=== PATIENT | female | born 1950 | race Caucasian/White ===

== ENCOUNTER 2021-09-15 15:57 | Inpatient (IN) ==
--- NOTE | 2021-09-15 16:37 | Emergency Department Note ---
HPI General Chief complaint: Back Pain/Injury Stated complaint: Low back pain Time Seen by Provider: 09/15/21 16:06 Source: patient and family Mode of arrival: wheelchair Limitations: no limitations History of Present Illness HPI Narrative: Narrative: 71-year-old female with a history of diabetes, diabetic neuropathy, obstructive sleep apnea, CKD, diabetic retinopathy, hyperlipidemia, morbid obesity, anemia, GERD hypertension hypothyroidism presents the ER initially to be evaluated for back pain which is since resolved but she was found to be at 70% on room air and when asked if she was short of breath she said yeah when I think about it I am short of breath now and it came out of the blue. She states her back pain and shortness of breath were sudden onset this afternoon there was no precipitating factor. She also states she has had some chills today. She has had no fever, nausea, vomiting, chest pain or chest pressure. She denies any abdominal pain, flank pain, dysuria, urgency or frequency. She has had all her COVID vaccinations. She denies any other complaints at this time. Related Data Home Medications Medication Instructions Recorded Confirmed aspirin 81 mg tablet,delayed 81 mg PO QDAY 12/20/18 08/23/21 release (Adult Aspirin Regimen) cholecalciferol (vitamin D3) PO 12/20/18 08/23/21 coenzyme [id number] 100 mg-100 cap PO QDAY cap 12/20/18 08/23/21 unit capsule anastrozole 1 mg tablet 1 mg PO .3 days per week tab 05/24/21 08/23/21 Previous Rx's Medication Instructions Recorded fluticasone propionate 50 1 spray INTRANASAL BID PRN #18.2 ml 08/26/19 mcg/actuation nasal spray,suspension (Flonase Allergy Relief) acebutolol 400 mg capsule 400 mg PO QDAY #90 cap 11/01/20 paroxetine HCl 20 mg tablet See Rx Instructions .ROUTE 02/22/21 .COMPLEX #100 tab zolpidem 10 mg tablet See Rx Instructions PO QHS #30 tab 05/23/21 levothyroxine 175 mcg tablet 175 mcg PO QDAY #90 tab 05/26/21 (Synthroid) buspirone 30 mg tablet See Rx Instructions .ROUTE 07/04/21 .COMPLEX #135 tab furosemide 20 mg tablet See Rx Instructions .ROUTE 07/04/21 .COMPLEX #90 tab omeprazole 20 mg capsule,delayed See Rx Instructions .ROUTE 07/04/21 release .COMPLEX #90 capsule atorvastatin 80 mg tablet 80 mg PO QHS #100 tab 08/15/21 losartan 100 mg tablet 100 mg PO QDAY #100 tab 08/15/21 pioglitazone 15 mg tablet See Rx Instructions .ROUTE 08/15/21 .COMPLEX #50 tab cephalexin 500 mg capsule 500 mg PO TID 10 Days #30 cap 08/23/21 Allergies Allergy/AdvReac Type Severity Reaction Status Date / Time amlodipine [From [facility]] Allergy Severe unknown Verified 09/15/21 15:57 atenolol Allergy Severe unknown Verified 09/15/21 15:57 captopril Allergy Severe unknown Verified 09/15/21 15:57 YOKO Inhibitors Allergy Unknown unknown Verified 09/15/21 15:57 Review of Systems ROS ROS Narrative: Narrative: All systems ED: reviewed and negative except as stated. [facility] Narrative Patient History Narrative: Narrative: Medical/Surgical/Family History All Active Problems (Updated 09/15/21 @ 18:27 by Kd Blanchard PA-C) Pneumonia (Acute) Dyspnea (Acute) Diarrhea (Acute) Right knee pain (Acute) Right shoulder pain (Acute) Diabetic peripheral neuropathy associated with type 2 diabetes mellitus (Acute) Skin lesion (Acute) Osteoporosis (Acute) Mixed hyperlipidemia (Acute) Type 2 diabetes with stage 3 chronic kidney disease GFR 30-59 (Acute) Diabetic retinopathy (Chronic) Stress (Chronic) Decreased libido (Chronic) Atrophic vaginitis (Chronic) Anemia (Chronic) Insomnia (Chronic) Hyperlipidemia (Chronic) Morbid obesity (Chronic) Sleep apnea (Chronic) Right knee pain (Chronic) Skin tag (Chronic) Fatigue (Chronic) Anxiety and depression (Chronic) Impingement syndrome, shoulder, left (Chronic) Left shoulder pain (Chronic) Sinus bradycardia (Chronic) Hearing loss (Chronic) Hemoglobinopathy (Chronic) Chronic ulcer of unspecified site (Chronic) Anemia, iron deficiency (Chronic) Encounter for long-term (current) use of medications (Chronic) Pain in left knee (Chronic) Invasive ductal carcinoma of left breast (Chronic) Foot callus (Chronic) Allergic rhinitis (Chronic) Skin lesion (Chronic) Blood in stool (Chronic) Benign neoplasm of cecum (Chronic) Benign neoplasm of transverse colon (Chronic) Benign neoplasm of descending colon (Chronic) Diverticulosis of colon without hemorrhage (Chronic) GERD (gastroesophageal reflux disease) (Chronic) Obesity (Chronic) Osteopenia (Chronic) Hypertension (Chronic) Vitamin D deficiency (Chronic) Hyperglycemia due to type 2 diabetes mellitus (Chronic) Type II diabetes mellitus with stage 2 chronic kidney disease (Chronic) Kidney disease, chronic, stage II (GFR 60-89 ml/min) (Chronic) Hyperlipidemia, mixed (Chronic) Hypothyroidism (Chronic) Skin mole (Chronic) Medical History (Updated 09/15/21 @ 18:27 by Kd Blanchard PA-C) Allergic rhinitis Anemia Anemia, iron deficiency Anxiety and depression Atrophic vaginitis Benign neoplasm of cecum Benign neoplasm of descending colon Benign neoplasm of transverse colon Blood in stool Chronic ulcer of unspecified site Decreased libido Diabetic retinopathy Diverticulosis of colon without hemorrhage Encounter for long-term (current) use of medications Fatigue Foot callus GERD (gastroesophageal reflux disease) Hearing loss Hemoglobinopathy Hyperglycemia due to type 2 diabetes mellitus Hyperlipidemia Hyperlipidemia, mixed Hypertension Hypothyroidism Impingement syndrome, shoulder, left Insomnia Invasive ductal carcinoma of left breast Kidney disease, chronic, stage II (GFR 60-89 ml/min) Left shoulder pain Morbid obesity Obesity Osteopenia Pain in left knee Right knee pain Sinus bradycardia Skin lesion Skin mole Skin tag Sleep apnea Stress Type II diabetes mellitus with stage 2 chronic kidney disease Vitamin D deficiency Surgical History History of lumpectomy of left breast (~12/2005) History of shoulder surgery (~09/2014) left shoulder complete replacement History of surgery (~11/2006) lap band, done in [place] Family History Other No pertinent family history Social History Smoking Status: Former smoker Alcohol Intake Frequency: does not drink Substance Use: does not use Exam Narrative Narrative: Narrative: Gen: Patient has 6 L via nasal cannula and is pausing to speak between breaths Eyes: PERRL, no conjunctival injection , and symmetrical lids. Sclerae non icteric HENMT: Normocephalic Atraumatic head, external nose and ears. Moist MM. Neck: Symmetric, trachea midline, CVS: +S1/S2, No murmurs or gallops. Radial pulses 2+ and equal bilat. nonpitting edema of the lower extremity RESP: Labored respiratory effort . Clear to auscultation bilaterally (CTAB). No noted wheezes rales or ronchi. GI: Nontender/Nondistended (NTND), No focal tenderness MSK: Extremities w/o deformity or ttp. No cyanosis or clubbing. Skin: Warm, Dry . No rashes or lesions . Cap refill less than 2. Neuro: No focal neurological deficit Psych: Awake, Alert, & Oriented (AAO) x3. Appropriate mood and affect . General Limitations: no limitations Course Vital Signs Vital signs: Vital Signs Temperature 97.5 F 09/15/21 15:57 Pulse Rate 82 09/15/21 15:57 Respiratory Rate 24 H 09/15/21 15:57 Blood Pressure 130/79 09/15/21 15:57 Pulse Oximetry (%) 70 L 09/15/21 15:57 Temperature 97.5 F 09/15/21 15:57 Pulse Rate 82 09/15/21 15:57 Respiratory Rate 24 H 09/15/21 15:57 Blood Pressure 130/79 09/15/21 15:57 Pulse Oximetry (%) 70 L 09/15/21 15:57 [facility] MDM Narrative Medical decision making narrative: Narrative: Patient had acute onset low back pain that is since resolved. She is also had chills today and has profound hypoxia 78% on room air. She has a history of obstructive sleep apnea which she use supplemental oxygen for at home for a short period of time but has not used this for several years. She states she is not normally short of breath at baseline and does not use supplemental oxygen at home. She denies fever but is positive for chills. She denies chest pain, chest pressure or previous cardiovascular history. I am concerned for possible pulmonary embolism or dissection. She states it was low back pain but this is resolved but she has profound hypoxia. Pending kidney function a CTA will be ordered. She also be evaluated with CBC, Chem-8, hepatic panel, troponin, EKG, chest x-ray and flu and COVID swabs. CBC: Hemoconcentration Chem-8: Unremarkable Hepatic panel: Unremarkable BNP: Slightly elevated but nonconcerning Troponin: Normal EKG: Sinus rhythm rate 81 bpm, likely left anterior fascicular block, borderline T wave abnormality, no evidence of acute ischemia at this time. Chest x-ray: Significant pneumonia of the right lung IMPRESSION: Large consolidated infiltrate right mid and lower lung with small right pleural effusion. Suspect pneumonia Interpreted and Authenticated by: Pito Bocanegra 09/15/21 Flu: Negative COVID: Negative Dr. Lentz will be consulted for pneumonia and hypoxia. She requested the patient be started on Zosyn and he will be down to see her for admission. Discharge Plan Patient/Caregiver Discharge Instructions Pt seen by NEUROLOGICAL SURGEON/PA only: Yes Clinical Impression: Pneumonia Patient Disposition: Xfer As Inpt ([facility]) Follow up with: Ammy Jeffries ARNP [Primary Care Provider] - Prescriptions: No Action fluticasone propionate [Flonase Allergy Relief] 50 mcg/actuation spray,suspension 1 spray INTRANASAL BID PRN (Reason: nasal congestion) Qty: 18.2 3RF Rx Instructions: administer into each nostril acebutolol 400 mg capsule 400 mg capsule 400 mg PO QDAY Qty: 90 2RF paroxetine HCl 20 mg tablet See Rx Instructions .ROUTE .COMPLEX Qty: 100 2RF Dose Instruction: TAKE 1 TABLET BY MOUTH EVERY DAY Rx Instructions: TAKE 1 TABLET BY MOUTH EVERY DAY zolpidem 10 mg tablet See Rx Instructions PO QHS Qty: 30 2RF Rx Instructions: 10mg, 1/2 - 1 PO QHS; levothyroxine [Synthroid] 175 mcg tablet 175 mcg PO QDAY Qty: 90 4RF furosemide 20 mg tablet See Rx Instructions .ROUTE .COMPLEX Qty: 90 0RF Dose Instruction: TAKE 1 TABLET BY MOUTH EVERY DAY NEEDED FOR EDEMA Rx Instructions: TAKE 1 TABLET BY MOUTH EVERY DAY NEEDED FOR EDEMA omeprazole 20 mg capsule,delayed release(DR/EC) See Rx Instructions .ROUTE .COMPLEX Qty: 90 0RF Dose Instruction: TAKE ONE CAPSULE BY MOUTH EACH MORNING BEFORE BREAKFAST Rx Instructions: TAKE ONE CAPSULE BY MOUTH EACH MORNING BEFORE BREAKFAST buspirone 30 mg tablet See Rx Instructions .ROUTE .COMPLEX Qty: 135 0RF Dose Instruction: TAKE 1 TABLET BY MOUTH ONCE IN THE MORNING AND 1/2 TABLET AT BEDTIME ALONG WITH PAXIL FOR DEPRESSION Rx Instructions: TAKE 1 TABLET BY MOUTH ONCE IN THE MORNING AND 1/2 TABLET AT BEDTIME ALONG WITH PAXIL FOR DEPRESSION pioglitazone 15 mg tablet See Rx Instructions .ROUTE .COMPLEX Qty: 50 2RF Dose Instruction: TAKE 1/2 TABLET BY MOUTH DAILY Rx Instructions: TAKE 1/2 TABLET BY MOUTH DAILY atorvastatin 80 mg tablet 80 mg PO QHS Qty: 100 3RF losartan 100 mg tablet 100 mg PO QDAY Qty: 100 2RF aspirin [Adult Aspirin Regimen] 81 mg tablet,delayed release (DR/EC) 81 mg PO QDAY 0RF coenzyme [id number] E 100 mg-100 unit capsule 100-100 mg-unit capsule PO QDAY 0RF cholecalciferol (vitamin D3) PO 0RF anastrozole 1 mg tablet 1 mg PO .3 days per week 0RF cephalexin 500 mg capsule 500 mg PO TID 10 Days Qty: 30 0RF
[2021-09-15 17:02] LABS: POC Calcium, Ionized 1.17 (1.16-1.32); POC Potassium 4.1 (3.3-5.1)
[2021-09-15] MEDS ORDERED: AZITHROMYCIN 500 MG in DEXTROSE 5% IN WATER 250 ML IV ONE (17:06)
[2021-09-15] MEDS ORDERED: cefTRIAXone 1 GM VIAL IV ONE (17:06)
[2021-09-15 17:37] LABS: Basophils # (Auto) 0.02 K/mcL (0.00-0.30); Basophils % (Auto) 0.2 % (0.0-2.0); Eosinophils # (Auto) 0.07 K/mcL (0.00-0.70); Eosinophils % (Auto) 0.9 % (0.0-7.0); Hematocrit 50.6 % (34.1-44.9); Hemoglobin 16.3 g/dL (11.2-15.7); Lymphocytes % (Auto) 7.3 % (15.5-49.0); Mean Cell Volume 86.9 fL (80.0-100.0); Mean Corpuscular HGB Conc 32.2 g/dL (31.0-36.0); Mean Platelet Volume 9.9 fL (7.4-10.4); Monocytes # (Auto) 0.56 K/mcL (0.10-0.90); Monocytes % (Auto) 6.8 % (1.0-12.0); Neutrophils % (Auto) 84.8 % (38.0-78.0); Platelet Count 191 K/mcL (140-440); RBC 5.82 M/mcL (3.59-5.38); Red Cell Distribution Width 18.1 % (11.5-14.5); WBC 8.2 K/mcL (4.5-11.0)
--- NOTE | 2021-09-15 17:44 | XRay Report ---
CLINICAL INFORMATION: Shortness of breath COMPARISON: 05/24/2021 TECHNIQUE: PA and Lateral views FINDINGS: Borderline cardiomegaly is unchanged. Mediastinum and pulmonary vessels are normal. A large consolidated infiltrate is developing in the right mid and lower lung. Small right pleural effusion appreciated. IMPRESSION: Large consolidated infiltrate right mid and lower lung with small right pleural effusion. Suspect pneumonia Interpreted and Authenticated by: Pito Bocanegra 09/15/21
[2021-09-15 18:13] LABS: proBNP 690.8 pg/mL (<125.0)
[2021-09-15 18:15] LABS: ALT/SGPT 9 U/L (<40); AST/SGOT 13 U/L (<32); Albumin 3.7 gm/dL (3.2-5.2); Alkaline Phosphatase 90 U/L (39-117); Bilirubin,Direct 0.2 mg/dL (<0.3); Bilirubin,Total 0.9 mg/dL (0.1-1.0); Globulin 2.8 gm/dL (2.2-3.7)
[2021-09-15] MEDS ORDERED: PIPERACILLIN SODIUM/TAZOBACTAM 3.375 GM in DEXTROSE 5% IN WATER 50 ML IV ONE (18:23)
[2021-09-15] MEDS ORDERED: ONDANSETRON 4 MG/2 ML VIAL IV PRN (19:45)
[2021-09-15] MEDS ORDERED: BISACODYL 10 MG SUPP.RECT PR PRN (19:46)
[2021-09-15] MEDS ORDERED: ALBUTEROL SULFATE 2.5 MG/3 ML NEBULIZER NEB PRN (19:46)
[2021-09-15] MEDS ORDERED: ACETAMINOPHEN 325 MG TABLET PO PRN (19:46)
[2021-09-15] MEDS ORDERED: NALOXONE HCL 0.4 MG/ML VIAL IV PRN (19:46)
[2021-09-15] MEDS ORDERED: PROCHLORPERAZINE 10 MG/2 ML VIAL IV PRN (19:46)
[2021-09-15] MEDS ORDERED: MAGNESIUM HYDROXIDE 30 ML ORAL.SUSP PO PRN (19:46)
[2021-09-15] MEDS ORDERED: ONDANSETRON 4 MG ODT TABLET SL PRN (19:46)
[2021-09-15] MEDS: 0.9 % SODIUM CHLORIDE 1,000 ML IV SCH (21:58)
[2021-09-15] MEDS: DOCUSATE SODIUM 100 MG CAPSULE PO SCH (21:58)
[2021-09-15] MEDS: SENNOSIDES 1 TABLET PO SCH (21:58)
[2021-09-15] MEDS: 0.9 % SODIUM CHLORIDE 10 ML SYRINGE IV SCH (21:59)
[2021-09-15] MEDS ORDERED: DEXTROSE 31 GM ORAL.SUSP PO PRN (22:30)
[2021-09-15] MEDS ORDERED: DEXTROSE 50% 50 ML VIAL IV PRN (22:30)
[2021-09-15] MEDS ORDERED: hydrALAZINE 20 MG/ML VIAL IV PRN (22:31)
[2021-09-15] MEDS ORDERED: QUEtiapine 25 MG TABLET PO PRN (22:32)
[2021-09-15] MEDS ORDERED: ZOLPIDEM 5 MG TABLET ONE (23:14)
[2021-09-15] MEDS: PIPERACILLIN SODIUM/TAZOBACTAM 3.375 GM in DEXTROSE 5% IN WATER 50 ML IV SCH (23:15)
[2021-09-15] MEDS: ZOLPIDEM 5 MG TABLET PO PRN (23:15)
[2021-09-16] MEDS: IPRATROPIUM/ALBUTEROL 3 ML AMPUL.NEB NEB SCH ×4 (00:51→18:41)
[2021-09-16] MEDS: INSULIN LISPRO 1 UNIT/0.01 ML UNIT SQ SCH ×5 (00:53→22:19)
[2021-09-16] MEDS: 0.9 % SODIUM CHLORIDE 10 ML SYRINGE IV SCH ×2 (05:27→16:39)
[2021-09-16] MEDS: PIPERACILLIN SODIUM/TAZOBACTAM 3.375 GM in DEXTROSE 5% IN WATER 50 ML IV SCH ×3 (05:27→17:37)
[2021-09-16 07:55] LABS: Basophils # (Auto) 0.05 K/mcL (0.00-0.30); Basophils % (Auto) 0.4 % (0.0-2.0); Eosinophils # (Auto) 0.08 K/mcL (0.00-0.70); Eosinophils % (Auto) 0.7 % (0.0-7.0); Hematocrit 43.1 % (34.1-44.9); Lymphocytes % (Auto) 14.3 % (15.5-49.0); Mean Cell Volume 86.9 fL (80.0-100.0); Mean Corpuscular HGB Conc 32.5 g/dL (31.0-36.0); Mean Platelet Volume 9.6 fL (7.4-10.4); Monocytes # (Auto) 0.93 K/mcL (0.10-0.90); Monocytes % (Auto) 7.8 % (1.0-12.0); Neutrophils % (Auto) 76.8 % (38.0-78.0); Platelet Count 174 K/mcL (140-440); RBC 4.96 M/mcL (3.59-5.38); Red Cell Distribution Width 17.5 % (11.5-14.5); WBC 11.9 K/mcL (4.5-11.0)
[2021-09-16] MEDS: ENOXAPARIN 40 MG/0.4 ML SYRINGE SQ SCH (08:03)
[2021-09-16] MEDS: PANTOPRAZOLE 40 MG TABLET PO SCH (08:03)
[2021-09-16] MEDS: DOCUSATE SODIUM 100 MG CAPSULE PO SCH ×2 (08:03→22:18)
[2021-09-16 08:15] LABS: ALT/SGPT 7 U/L (<40); AST/SGOT 10 U/L (<32); Albumin 3.3 gm/dL (3.2-5.2); Albumin/Globulin Ratio 1.5 (1.0-2.3); Alkaline Phosphatase 63 U/L (39-117); Bilirubin,Total 1.1 mg/dL (0.1-1.0); Blood Urea Nitrogen 17 mg/dL (8-23); Calcium 8.5 mg/dL (8.6-10.4); Carbon Dioxide 23 mmol/L (22-30); Chloride 103 mmol/L (96-108); Globulin 2.2 gm/dL (2.2-3.7); Glomerular Filtration Rate 50; Glucose 123 mg/dL (70-105)
[2021-09-16] MEDS: AZITHROMYCIN 500 MG in DEXTROSE 5% IN WATER 250 ML IV SCH (10:34)
[2021-09-16] MEDS: 0.9 % SODIUM CHLORIDE 1,000 ML IV SCH (10:35)
--- NOTE | 2021-09-16 17:55 | Internal Med History&Physical ---
HPI History of Present Illness Patient information: Note initiated : 09/15/21 at 5:54 pm Service Date, if different from initiated Date: 09/15/2021 Patient: Breann Bell a 71 y/o F admitted on 09/15/21 for Low back pain. Chief Complaint: [] History of present illness: Ms. Bell is a 71 year old F 71-year-old female with obesity, obstructive sleep apnea diabetic neuropathy CKD diabetic retinopathy hyperlipidemia anemia GERD hypertension hypothyroidism was brought to the ER because of shortness of breath and patient was hypoxic 70% on room air she has been having worsening chills and increasing sputum production for the last few days was evaluated in the ER found to have right lower lobe pneumonia and hypoxia needing 6 L of oxygen patient was admitted for further management Review of systems Constitutional: Chills fever and fatigue Eyes: no vision changes or pain Cardiovascular: no chest pain, no palpitations Respiratory: Cough and shortness of breath Gastrointestinal: no nausea and stil have abdominal discomfort. Genitourinary: no dysuria or difficulty voiding Musculoskeletal: Back pain worse with a deep inspiration more on the right side Integumentary: no skin lesion or wound Neurological: no focal weakness or numbness Psychiatric: no anxiety or depression Physical exam Head: distress needing 6 L of oxygen Eyes: normal appearance, no scleral icterus. Neck: full ROM Respiratory: Significant crackles right lower lobe Cardiovascular: normal rate and rhythm, S1, S2. GI/Abdominal: soft, nontender, no guarding. Extremities: full range of motion, nontender. Neurological: CN II-XII intact, intact motor, intact sensation. Psychiatric: normal mood. Skin: warm, normal color PFSH PFSH All Active Problems (Updated 09/15/21 @ 18:27 by Kd Blanchard PA-C) Pneumonia (Acute) Dyspnea (Acute) Diarrhea (Acute) Right knee pain (Acute) Right shoulder pain (Acute) Diabetic peripheral neuropathy associated with type 2 diabetes mellitus (Acute) Skin lesion (Acute) Osteoporosis (Acute) Mixed hyperlipidemia (Acute) Type 2 diabetes with stage 3 chronic kidney disease GFR 30-59 (Acute) Diabetic retinopathy (Chronic) Stress (Chronic) Decreased libido (Chronic) Atrophic vaginitis (Chronic) Anemia (Chronic) Insomnia (Chronic) Hyperlipidemia (Chronic) Morbid obesity (Chronic) Sleep apnea (Chronic) Right knee pain (Chronic) Skin tag (Chronic) Fatigue (Chronic) Anxiety and depression (Chronic) Impingement syndrome, shoulder, left (Chronic) Left shoulder pain (Chronic) Sinus bradycardia (Chronic) Hearing loss (Chronic) Hemoglobinopathy (Chronic) Chronic ulcer of unspecified site (Chronic) Anemia, iron deficiency (Chronic) Encounter for long-term (current) use of medications (Chronic) Pain in left knee (Chronic) Invasive ductal carcinoma of left breast (Chronic) Foot callus (Chronic) Allergic rhinitis (Chronic) Skin lesion (Chronic) Blood in stool (Chronic) Benign neoplasm of cecum (Chronic) Benign neoplasm of transverse colon (Chronic) Benign neoplasm of descending colon (Chronic) Diverticulosis of colon without hemorrhage (Chronic) GERD (gastroesophageal reflux disease) (Chronic) Obesity (Chronic) Osteopenia (Chronic) Hypertension (Chronic) Vitamin D deficiency (Chronic) Hyperglycemia due to type 2 diabetes mellitus (Chronic) Type II diabetes mellitus with stage 2 chronic kidney disease (Chronic) Kidney disease, chronic, stage II (GFR 60-89 ml/min) (Chronic) Hyperlipidemia, mixed (Chronic) Hypothyroidism (Chronic) Skin mole (Chronic) Medical History (Updated 09/15/21 @ 18:27 by Kd Blanchard PA-C) Allergic rhinitis Anemia Anemia, iron deficiency Anxiety and depression Atrophic vaginitis Benign neoplasm of cecum Benign neoplasm of descending colon Benign neoplasm of transverse colon Blood in stool Chronic ulcer of unspecified site Decreased libido Diabetic retinopathy Diverticulosis of colon without hemorrhage Encounter for long-term (current) use of medications Fatigue Foot callus GERD (gastroesophageal reflux disease) Hearing loss Hemoglobinopathy Hyperglycemia due to type 2 diabetes mellitus Hyperlipidemia Hyperlipidemia, mixed Hypertension Hypothyroidism Impingement syndrome, shoulder, left Insomnia Invasive ductal carcinoma of left breast Kidney disease, chronic, stage II (GFR 60-89 ml/min) Left shoulder pain Morbid obesity Obesity Osteopenia Pain in left knee Right knee pain Sinus bradycardia Skin lesion Skin mole Skin tag Sleep apnea Stress Type II diabetes mellitus with stage 2 chronic kidney disease Vitamin D deficiency Surgical History History of lumpectomy of left breast (~12/2005) History of shoulder surgery (~09/2014) left shoulder complete replacement History of surgery (~11/2006) lap band, done in [place] Family History Other No pertinent family history Social History marital status: occupational status: retired hx recent travel: No daily servings fruits/ve-1 physical activity: walking frequency: 1-2 times per week alcohol intake frequency: does not drink substance use type: does not use MEDS/ALLERGIES Home Medications and Allergies Home Medications Medication Instructions Recorded Confirmed Type aspirin 81 mg tablet,delayed 81 mg PO QDAY 12/20/18 09/15/21 History release (Adult Aspirin Regimen) cholecalciferol (vitamin D3) 1,000 mg PO QDAY 12/20/18 09/15/21 History coenzyme [id number] E 100 mg-100 1 cap PO QDAY cap 12/20/18 09/15/21 History unit capsule acebutolol 400 mg capsule 400 mg PO QDAY #90 cap 11/01/20 09/15/21 Rx zolpidem 10 mg tablet See Rx Instructions PO QHS #30 tab 05/23/21 09/15/21 Rx levothyroxine 175 mcg tablet 175 mcg PO QDAY #90 tab 05/26/21 09/15/21 Rx (Synthroid) buspirone 30 mg tablet See Rx Instructions .ROUTE 07/04/21 09/15/21 Rx .COMPLEX #135 tab omeprazole 20 mg capsule,delayed See Rx Instructions .ROUTE 07/04/21 09/15/21 Rx release .COMPLEX #90 capsule atorvastatin 80 mg tablet 80 mg PO QHS #100 tab 08/15/21 09/15/21 Rx losartan 100 mg tablet 100 mg PO QDAY #100 tab 08/15/21 09/15/21 Rx pioglitazone 15 mg tablet See Rx Instructions .ROUTE 08/15/21 09/15/21 Rx .COMPLEX #50 tab furosemide 20 mg tablet 20 mg PO QDAY PRN 09/15/21 09/15/21 History paroxetine HCl 20 mg tablet 20 mg PO QDAY 09/15/21 09/15/21 History Allergies Allergy/AdvReac Type Severity Reaction Status Date / Time YOKO Inhibitors Allergy Unknown unknown Verified 09/15/21 20:51 amlodipine [From [facility]] Allergy Unknown unknown Verified 09/15/21 20:51 atenolol Allergy Unknown unknown Verified 09/15/21 20:51 EXAM Constitutional Vitals: Temp Pulse Resp BP Pulse Ox 97.9 F 56 L 18 123/69 92 09/16/21 15:42 09/16/21 15:42 09/16/21 15:42 09/16/21 15:42 09/16/21 15:42 DATA Data Completed and Pending Labs: Labs from last 24 hours 09/16/21 09/16/21 09/15/21 07:11 07:11 16:56 WBC 11.9 H RBC 4.96 Hgb 14.0 Hct 43.1 MCV 86.9 MCH 28.2 MCHC 32.5 RDW 17.5 H Plt Count 174 MPV 9.6 Neut % (Auto) 76.8 Lymph % (Auto) 14.3 L Hood % (Auto) 7.8 Eos % (Auto) 0.7 Baso % (Auto) 0.4 Lymph # (Auto) 1.70 Hood # (Auto) 0.93 H Eos # (Auto) 0.08 Baso # (Auto) 0.05 Absolute Neutrophils 9.12 H Sodium 136 Potassium 3.8 Chloride 103 Carbon Dioxide 23 Anion Gap 10.0 BUN 17 Creatinine 1.1 GFR Calculation 50 Glucose 123 H Calcium 8.5 L Magnesium 1.9 Total Bilirubin 1.1 H 0.9 Direct Bilirubin 0.2 AST 10 13 ALT 7 9 Alkaline Phosphatase 63 90 NT-Pro-B Natriuret Pep 690.8 H Total Protein 5.5 L 6.5 Albumin 3.3 3.7 Globulin 2.2 2.8 Albumin/Globulin Ratio 1.5 A/P Narrative Plan of Treatment: Acute hypoxemic respiratory failure Community-acquired pneumonia History typical for pneumonia with chest x-ray showing consolidation of the right lower lobe Denied any history suggestive of aspiration History of obesity sleep apnea uses CPAP History of diabetes Plan Start the patient on Zosyn because of his significant hypoxia Continued azithromycin Sputum gram stain culture ordered COVID test ordered in the ER Type 2 diabetes Sliding scale insulin We will hold her p.o. medications Sleep apnea Obesity hypoventilation Continue CPAP DVT prophylaxis-subcu Lovenox CODE STATUS-full code Expect length of stay-2-3 midnights Time Spent With Patient Time: Total time spent is greater than 50% in coordination of care (as documented) at patient's floor/unit and/or counseling patient: Total time spent with greater than 50% in coordination of care (as documented) at patient's floor/unit and/or counseling patient:: 50 - 70 minutes Critical Care Time: No QUALITY VTE Deep Vein Thrombosis/Pulmonary Embolism Present on Admission: No
--- NOTE | 2021-09-16 17:56 | Internal Med Progress Note ---
SUBJECTIVE Subjective Patient information: Note initiated : 09/16/21 at 5:55 pm Service Date, if different from initiated Date: [] Patient: Breann Bell 71 y/o F admitted on 09/15/21 for Low back pain. Chief Complaint: [] Interval history: 71-year-old female with obesity, obstructive sleep apnea diabetic neuropathy CKD diabetic retinopathy hyperlipidemia anemia GERD hypertension hypothyroidism was brought to the ER because of shortness of breath and patient was hypoxic 70% on room air she has been having worsening chills and increasing sputum production for the last few days was evaluated in the ER found to have right lower lobe pneumonia and hypoxia needing 6 L of oxygen patient was admitted for further management 09/16 Hypoxia significantly improved Patient is able to sit up without any respiratory distress Her back pain improved Patient had trouble with the CPAP last night and her family supposed to bring home CPAP tonight Review of systems Constitutional: Chills fever and fatigue Eyes: no vision changes or pain Cardiovascular: no chest pain, no palpitations Respiratory: Cough and shortness of breath Gastrointestinal: no nausea and stil have abdominal discomfort. Genitourinary: no dysuria or difficulty voiding Musculoskeletal: Back pain worse with a deep inspiration more on the right side Integumentary: no skin lesion or wound Neurological: no focal weakness or numbness Psychiatric: no anxiety or depression Physical exam Head: distress needing 6 L of oxygen Eyes: normal appearance, no scleral icterus. Neck: full ROM Respiratory: Significant crackles right lower lobe Cardiovascular: normal rate and rhythm, S1, S2. GI/Abdominal: soft, nontender, no guarding. Extremities: full range of motion, nontender. Neurological: CN II-XII intact, intact motor, intact sensation. Psychiatric: normal mood. Skin: warm, normal color Constitutional Vitals: Vital Signs Temp Pulse Resp BP Pulse Ox 97.9 F 56 L 18 123/69 92 09/16/21 15:42 09/16/21 15:42 09/16/21 15:42 09/16/21 15:42 09/16/21 15:42 Period Temp Pulse Resp BP Sys/Chavira Pulse Ox Last 24 Hr 97.5 F-98.8 F 56-69 18-24 95-143/59-84 88-95 Intake and Output 09/16/21 09/16/21 09/16/21 05:59 13:59 21:59 Intake Total 250 2190 1800 Output Total 350 Balance -100 2190 1800 Weight 103.555 kg Patient Weight 09/17/21 05:59 Weight 103.555 kg Intake & Output: Intake & Output 09/16/21 09/16/21 09/16/21 05:59 13:59 21:59 Intake Total 250 2190 1800 Output Total 350 Balance -100 2190 1800 Weight 103.555 kg Intake: IV 50 1350 Sodium Chloride 0.9% 1,000 ml @ 1000 100 mls/hr IV .Q10H [facility] Rx#: [id number] Zithromax 500 mg In Dextrose 5% 250 in Water 250 ml @ 250 mls/hr IV Q24H [facility] Rx#:[id number] Zosyn 3.375 gm In Dextrose 5% 50 100 in Water 50 ml @ 100 mls/hr IV Q6H [facility] Rx#:[id number] Oral [id number] Output: Void Amount 350 Other: Meal Lunch Dinner Percent of Meal Consumed 100% 100% Feeding Ability Independent Independent Urine Appearance Clear Clear Urine Color Dark Yellow Bright Yellow Stool Size Small Stool Color Brown Stool Consistency Soft # Voids 1 1 # Bowel Movements 1 OBJ DATA Labs CBC & Chem 7: 09/16/21 07:11 09/16/21 07:11 Labs: Abnormal Lab Results 09/16/21 09/16/21 09/15/21 07:11 07:11 17:00 WBC 11.9 H RBC Hgb Hct POC Hct 51.0 H RDW 17.5 H Neut % (Auto) Lymph % (Auto) 14.3 L Lymph # (Auto) Will # (Auto) 0.93 H Absolute Neutrophils 9.12 H Glucose 123 H POC Glucose 158 H Calcium 8.5 L Total Bilirubin 1.1 H NT-Pro-B Natriuret Pep Total Protein 5.5 L POC Troponin I 09/15/21 09/15/21 09/15/21 16:57 16:56 16:56 WBC RBC 5.82 H Hgb 16.3 H Hct 50.6 H POC Hct RDW 18.1 H Neut % (Auto) 84.8 H Lymph % (Auto) 7.3 L Lymph # (Auto) 0.60 L Will # (Auto) Absolute Neutrophils Glucose POC Glucose Calcium Total Bilirubin NT-Pro-B Natriuret Pep 690.8 H Total Protein POC Troponin I 0.01 L Meds: Medications Acetaminophen (Acetaminophen 325 Mg Tablet) 650 mg PO Q6HP PRN; Protocol PRN Reason: Per Pain Protocol/Fever > 101 Last Admin: 09/15/21 21:58 Dose: 650 mg Documented by: Albuterol Sulfate (Albuterol Sulfate 2.5 Mg/3 Ml Nebulizer) 2.5 mg NEB Q2HP PRN PRN Reason: Shortness Of Breath Albuterol/Ipratropium (Ipratropium/Albuterol 3 Ml Ampul.Neb) 3 ml NEB Q6HRT [facility] Last Admin: 09/16/21 13:51 Dose: 3 ml Documented by: Bisacodyl (Bisacodyl 10 Mg Supp.Rect) 10 mg [place] Q2-3DAYS PRN PRN Reason: Constipation Dextrose (Dextrose 50% 50 Ml Vial) 0 ml IV UD PRN PRN Reason: Per Sliding Scale Diagnostic Test (Pha) (Accu-Chek 1 Each Strip) 1 each FS [facility] Last Admin: 09/16/21 16:40 Dose: 1 each Documented by: Docusate Sodium (Docusate Sodium 100 Mg Capsule) 100 mg PO BID [facility] Last Admin: 09/16/21 08:03 Dose: 100 mg Documented by: Enoxaparin Sodium (Enoxaparin 40 Mg/0.4 Ml Syringe) 40 mg SQ DAILY [facility] Last Admin: 09/16/21 08:03 Dose: 40 mg Documented by: Glucose (Dextrose 31 Gm Oral.Susp) 15 gm PO PRN PRN PRN Reason: Hypoglycemia Hydralazine HCl (Hydralazine 20 Mg/Ml Vial) 10 mg IV Q4-6HP PRN PRN Reason: Hypertension Piperacillin Sod/Tazobactam (Sod 3.375 gm/ Dextrose) 50 mls @ 100 mls/hr IV Q6H [facility]; Protocol Last Admin: 09/16/21 17:37 Dose: 100 mls/hr Documented by: Azithromycin 500 mg/ Dextrose 250 mls @ 250 mls/hr IV Q24H [facility]; Protocol Stop: 09/17/21 09:59 Last Infusion: 09/16/21 11:35 Dose: Infused Documented by: Insulin Human Lispro (Insulin Lispro 1 Unit/0.01 Ml Unit) 0 unit SQ [facility]; Protocol Last Admin: 09/16/21 16:40 Dose: Not Given Documented by: Magnesium Hydroxide (Magnesium Hydroxide 30 Ml Oral.Susp) 30 ml PO DAILYP PRN PRN Reason: Constipation Naloxone HCl (Naloxone Hcl 0.4 Mg/Ml Vial) 0.1 mg IV Q2MIN PRN PRN Reason: Opiate Reversal Ondansetron HCl (Ondansetron 4 Mg/2 Ml Vial) 4 mg IV Q6HP PRN PRN Reason: Nausea And Vomiting Ondansetron HCl (Ondansetron 4 Mg Odt Tablet) 4 mg SL Q6HP PRN PRN Reason: Nausea And Vomiting Pantoprazole Sodium (Pantoprazole 40 Mg Tablet) 40 mg PO QAMAC [facility] Last Admin: 09/16/21 08:03 Dose: 40 mg Documented by: Prochlorperazine (Prochlorperazine 10 Mg/2 Ml Vial) 5 mg IV Q4HP PRN PRN Reason: Nausea And Vomiting Quetiapine Fumarate (Quetiapine 25 Mg Tablet) 12.5 mg PO HSP PRN PRN Reason: iNSOMNIA-2nd option Senna (Sennosides 1 Tablet) 2 tab PO HS [facility] Last Admin: 09/15/21 21:58 Dose: 2 tab Documented by: Sodium Chloride (0.9 % Sodium Chloride 10 Ml Syringe) 10 ml IV Q8 [facility] Last Admin: 09/16/21 16:39 Dose: 10 ml Documented by: Zolpidem Tartrate (Zolpidem 5 Mg Tablet) 5 mg PO HSP PRN PRN Reason: Insomnia Last Admin: 09/15/21 23:15 Dose: 5 mg Documented by: A/P Narrative Plan of Treatment: Acute hypoxemic respiratory failure Community-acquired pneumonia History typical for pneumonia with chest x-ray showing consolidation of the right lower lobe Denied any history suggestive of aspiration History of obesity sleep apnea uses CPAP History of diabetes Plan Hypoxia improving Continue Zosyn and azithromycin Sputum gram stain culture pending COVID test ordered in the ER Type 2 diabetes Sliding scale insulin We will hold her p.o. medications Sleep apnea Obesity hypoventilation Continue CPAP Insomnia She takes Ambien 5 mg-continued DVT prophylaxis-subcu Lovenox CODE STATUS-full code Expect length of stay-2-3 midnights Time Spent With Patient Time: Total time spent is greater than 50% in coordination of care (as documented) at patient's floor/unit and/or counseling patient: QUALITY VTE Deep Vein Thrombosis/Pulmonary Embolism Present on Admission: No
[2021-09-16] MEDS: ZOLPIDEM 5 MG TABLET PO PRN (22:18)
[2021-09-16] MEDS: SENNOSIDES 1 TABLET PO SCH (22:18)
[2021-09-17] MEDS: PIPERACILLIN SODIUM/TAZOBACTAM 3.375 GM in DEXTROSE 5% IN WATER 50 ML IV SCH ×4 (01:06→17:07)
[2021-09-17] MEDS: 0.9 % SODIUM CHLORIDE 10 ML SYRINGE IV SCH ×3 (01:07→13:46)
[2021-09-17] MEDS: IPRATROPIUM/ALBUTEROL 3 ML AMPUL.NEB NEB SCH ×4 (01:07→19:14)
[2021-09-17 06:27] LABS: Basophils # (Auto) 0.04 K/mcL (0.00-0.30); Basophils % (Auto) 0.5 % (0.0-2.0); Eosinophils # (Auto) 0.42 K/mcL (0.00-0.70); Eosinophils % (Auto) 5.3 % (0.0-7.0); Hematocrit 45.9 % (34.1-44.9); Hemoglobin 14.6 g/dL (11.2-15.7); Lymphocytes # (Auto) 1.84 K/mcL (1.50-4.80); Lymphocytes % (Auto) 23.2 % (15.5-49.0); Mean Cell Volume 88.8 fL (80.0-100.0); Mean Corpuscular HGB Conc 31.8 g/dL (31.0-36.0); Mean Platelet Volume 10.1 fL (7.4-10.4); Monocytes # (Auto) 0.46 K/mcL (0.10-0.90); Monocytes % (Auto) 5.8 % (1.0-12.0); Neutrophils % (Auto) 65.2 % (38.0-78.0); Platelet Count 178 K/mcL (140-440); RBC 5.17 M/mcL (3.59-5.38); Red Cell Distribution Width 17.2 % (11.5-14.5); WBC 7.9 K/mcL (4.5-11.0)
[2021-09-17 06:54] LABS: ALT/SGPT 8 U/L (<40); AST/SGOT 11 U/L (<32); Albumin 3.4 gm/dL (3.2-5.2); Albumin/Globulin Ratio 1.3 (1.0-2.3); Alkaline Phosphatase 67 U/L (39-117); Bilirubin,Total 1.1 mg/dL (0.1-1.0); Blood Urea Nitrogen 15 mg/dL (8-23); Calcium 8.9 mg/dL (8.6-10.4); Carbon Dioxide 20 mmol/L (22-30); Chloride 106 mmol/L (96-108); Globulin 2.6 gm/dL (2.2-3.7); Glomerular Filtration Rate 50; Glucose 90 mg/dL (70-105)
[2021-09-17] MEDS: PANTOPRAZOLE 40 MG TABLET PO SCH (07:17)
[2021-09-17] MEDS: INSULIN LISPRO 1 UNIT/0.01 ML UNIT SQ SCH ×4 (07:18→20:57)
[2021-09-17] MEDS: ENOXAPARIN 40 MG/0.4 ML SYRINGE SQ SCH (08:53)
[2021-09-17] MEDS: AZITHROMYCIN 500 MG in DEXTROSE 5% IN WATER 250 ML IV SCH (08:53)
[2021-09-17] MEDS: DOCUSATE SODIUM 100 MG CAPSULE PO SCH ×2 (08:53→21:00)
--- NOTE | 2021-09-17 11:00 | Internal Med Progress Note ---
SUBJECTIVE Subjective Patient information: Note initiated : 09/17/21 at 10:59 am Service Date, if different from initiated Date: [] Patient: Breann Bell 71 y/o F admitted on 09/15/21 for Low back pain. Chief Complaint: [] Interval history: 71-year-old female with obesity, obstructive sleep apnea diabetic neuropathy CKD diabetic retinopathy hyperlipidemia anemia GERD hypertension hypothyroidism was brought to the ER because of shortness of breath and patient was hypoxic 70% on room air she has been having worsening chills and increasing sputum production for the last few days was evaluated in the ER found to have right lower lobe pneumonia and hypoxia needing 6 L of oxygen patient was admitted for further management 09/16 Hypoxia significantly improved Patient is able to sit up without any respiratory distress Her back pain improved Patient had trouble with the CPAP last night and her family supposed to bring home CPAP tonight 09/17 Hypoxia improving still needing 3 L nasal cannula oxygen Leukocytosis resolved Review of systems Constitutional: Chills fever and fatigue Eyes: no vision changes or pain Cardiovascular: no chest pain, no palpitations Respiratory: Cough and shortness of breath Gastrointestinal: no nausea and stil have abdominal discomfort. Genitourinary: no dysuria or difficulty voiding Musculoskeletal: Back pain worse with a deep inspiration more on the right side Integumentary: no skin lesion or wound Neurological: no focal weakness or numbness Psychiatric: no anxiety or depression Physical exam Head: distress needing 6 L of oxygen Eyes: normal appearance, no scleral icterus. Neck: full ROM Respiratory: Continued having crackles no wheezing Cardiovascular: normal rate and rhythm, S1, S2. GI/Abdominal: soft, nontender, no guarding. Extremities: full range of motion, nontender. Neurological: CN II-XII intact, intact motor, intact sensation. Psychiatric: normal mood. Skin: warm, normal color Constitutional Vitals: Vital Signs Temp Pulse Resp BP Pulse Ox 97.8 F 67 24 H 116/66 90 09/17/21 07:20 09/17/21 06:07 09/17/21 07:20 09/17/21 07:20 09/17/21 07:52 Period Temp Pulse Resp BP Sys/Chavira Pulse Ox Last 24 Hr 97.8 F-98.9 F 56-84 14-24 95-144/59-90 90-94 Intake and Output 09/16/21 09/17/2122 21:59 05:59 13:59 Intake Total 1850 450 300 Output Total 200 1350 Balance 1650 -900 300 Weight 102.693 kg Intake & Output: Intake & Output 09/16/21 09/17/21 09/17/21 21:59 05:59 13:59 Intake Total 1850 450 300 Output Total 200 1350 Balance 1650 -900 300 Weight 102.693 kg Intake: IV 50 50 300 Zithromax 500 mg In Dextrose 5% 250 in Water 250 ml @ 250 mls/hr IV Q24H [facility] Rx#:[id number] Zosyn 3.375 gm In Dextrose 5% 50 50 50 in Water 50 ml @ 100 mls/hr IV Q6H [facility] Rx#:[id number] Oral 1800 400 Output: Void Amount 200 1350 Other: Meal Dinner Percent of Meal Consumed 100% Feeding Ability Independent Urine Appearance Clear Clear Urine Color Bright Yellow Bright Yellow # Voids 1 OBJ DATA Labs CBC & Chem 7: 09/17/21 05:41 09/17/21 05:41 Labs: Abnormal Lab Results 09/17/21 09/17/21 09/16/21 05:41 05:41 07:11 WBC RBC Hgb Hct 45.9 H POC Hct RDW 17.2 H Neut % (Auto) Lymph % (Auto) Lymph # (Auto) [place] # (Auto) Absolute Neutrophils Carbon Dioxide 20 L Glucose 123 H POC Glucose Calcium 8.5 L Total Bilirubin 1.1 H 1.1 H NT-Pro-B Natriuret Pep Total Protein 5.5 L POC Troponin I 09/16/21 09/15/21 09/15/21 07:11 17:00 16:57 WBC 11.9 H RBC Hgb Hct POC Hct 51.0 H RDW 17.5 H Neut % (Auto) Lymph % (Auto) 14.3 L Lymph # (Auto) [place] # (Auto) 0.93 H Absolute Neutrophils 9.12 H Carbon Dioxide Glucose POC Glucose 158 H Calcium Total Bilirubin NT-Pro-B Natriuret Pep Total Protein POC Troponin I 0.01 L 09/15/21 09/15/21 16:56 16:56 WBC RBC 5.82 H Hgb 16.3 H Hct 50.6 H POC Hct RDW 18.1 H Neut % (Auto) 84.8 H Lymph % (Auto) 7.3 L Lymph # (Auto) 0.60 L [place] # (Auto) Absolute Neutrophils Carbon Dioxide Glucose POC Glucose Calcium Total Bilirubin NT-Pro-B Natriuret Pep 690.8 H Total Protein POC Troponin I Meds: Medications Acetaminophen (Acetaminophen 325 Mg Tablet) 650 mg PO Q6HP PRN; Protocol PRN Reason: Per Pain Protocol/Fever > 101 Last Admin: 09/15/21 21:58 Dose: 650 mg Documented by: Albuterol Sulfate (Albuterol Sulfate 2.5 Mg/3 Ml Nebulizer) 2.5 mg NEB Q2HP PRN PRN Reason: Shortness Of Breath Albuterol/Ipratropium (Ipratropium/Albuterol 3 Ml Ampul.Neb) 3 ml NEB Q6HRT [facility] Last Admin: 09/17/21 06:04 Dose: 3 ml Documented by: Bisacodyl (Bisacodyl 10 Mg Supp.Rect) 10 mg [place] Q2-3DAYS PRN PRN Reason: Constipation Dextrose (Dextrose 50% 50 Ml Vial) 0 ml IV UD PRN PRN Reason: Per Sliding Scale Diagnostic Test (Pha) (Accu-Chek 1 Each Strip) 1 each [facility] Last Admin: 09/17/21 07:18 Dose: 1 each Documented by: Docusate Sodium (Docusate Sodium 100 Mg Capsule) 100 mg PO BID [facility] Last Admin: 09/17/21 08:53 Dose: 100 mg Documented by: Enoxaparin Sodium (Enoxaparin 40 Mg/0.4 Ml Syringe) 40 mg SQ DAILY [facility] Last Admin: 09/17/21 08:53 Dose: 40 mg Documented by: Glucose (Dextrose 31 Gm Oral.Susp) 15 gm PO PRN PRN PRN Reason: Hypoglycemia Hydralazine HCl (Hydralazine 20 Mg/Ml Vial) 10 mg IV Q4-6HP PRN PRN Reason: Hypertension Piperacillin Sod/Tazobactam (Sod 3.375 gm/ Dextrose) 50 mls @ 100 mls/hr IV Q6H [facility]; Protocol Last Infusion: 09/17/21 06:56 Dose: Infused Documented by: Insulin Human Lispro (Insulin Lispro 1 Unit/0.01 Ml Unit) 0 unit SQ ACHS [facility]; Protocol Last Admin: 09/17/21 07:18 Dose: Not Given Documented by: Magnesium Hydroxide (Magnesium Hydroxide 30 Ml Oral.Susp) 30 ml PO DAILYP PRN PRN Reason: Constipation Naloxone HCl (Naloxone Hcl 0.4 Mg/Ml Vial) 0.1 mg IV Q2MIN PRN PRN Reason: Opiate Reversal Ondansetron HCl (Ondansetron 4 Mg/2 Ml Vial) 4 mg IV Q6HP PRN PRN Reason: Nausea And Vomiting Ondansetron HCl (Ondansetron 4 Mg Odt Tablet) 4 mg SL Q6HP PRN PRN Reason: Nausea And Vomiting Pantoprazole Sodium (Pantoprazole 40 Mg Tablet) 40 mg PO QAMAC [facility] Last Admin: 09/17/21 07:17 Dose: 40 mg Documented by: Prochlorperazine (Prochlorperazine 10 Mg/2 Ml Vial) 5 mg IV Q4HP PRN PRN Reason: Nausea And Vomiting Quetiapine Fumarate (Quetiapine 25 Mg Tablet) 12.5 mg PO HSP PRN PRN Reason: iNSOMNIA-2nd option Senna (Sennosides 1 Tablet) 2 tab PO HS [facility] Last Admin: 09/16/21 22:18 Dose: 2 tab Documented by: Sodium Chloride (0.9 % Sodium Chloride 10 Ml Syringe) 10 ml IV Q8 [facility] Last Admin: 09/17/21 05:38 Dose: 10 ml Documented by: Zolpidem Tartrate (Zolpidem 5 Mg Tablet) 5 mg PO HSP PRN PRN Reason: Insomnia Last Admin: 09/16/21 22:18 Dose: 5 mg Documented by: A/P Narrative Plan of Treatment: Acute hypoxemic respiratory failure Community-acquired pneumonia History typical for pneumonia with chest x-ray showing consolidation of the right lower lobe Denied any history suggestive of aspiration History of obesity sleep apnea uses CPAP History of diabetes Plan Hypoxia improving Continue Zosyn and azithromycin will change to Augmentin and doxycycline upon discharge COVID test ordered in the ER Type 2 diabetes Sliding scale insulin We will hold her p.o. medications Sleep apnea Obesity hypoventilation Continue CPAP Insomnia She takes Ambien 5 mg-continued DVT prophylaxis-subcu Lovenox CODE STATUS-full code Expect length of stay-1 midnights Time Spent With Patient Time: Total time spent is greater than 50% in coordination of care (as documented) at patient's floor/unit and/or counseling patient: QUALITY VTE Deep Vein Thrombosis/Pulmonary Embolism Present on Admission: No
[2021-09-17] MEDS: SENNOSIDES 1 TABLET PO SCH (21:00)
[2021-09-17] MEDS: ZOLPIDEM 5 MG TABLET PO PRN (21:00)
[2021-09-18] MEDS: 0.9 % SODIUM CHLORIDE 10 ML SYRINGE IV SCH ×4 (00:31→21:19)
[2021-09-18] MEDS: IPRATROPIUM/ALBUTEROL 3 ML AMPUL.NEB NEB SCH ×4 (00:32→18:43)
[2021-09-18] MEDS: PIPERACILLIN SODIUM/TAZOBACTAM 3.375 GM in DEXTROSE 5% IN WATER 50 ML IV SCH ×5 (00:32→23:36)
[2021-09-18 06:39] LABS: Basophils # (Auto) 0.04 K/mcL (0.00-0.30); Basophils % (Auto) 0.8 % (0.0-2.0); Eosinophils # (Auto) 0.47 K/mcL (0.00-0.70); Eosinophils % (Auto) 8.8 % (0.0-7.0); Hematocrit 41.7 % (34.1-44.9); Hemoglobin 13.2 g/dL (11.2-15.7); Lymphocytes # (Auto) 1.47 K/mcL (1.50-4.80); Lymphocytes % (Auto) 27.6 % (15.5-49.0); Mean Cell Volume 88.5 fL (80.0-100.0); Mean Corpuscular HGB Conc 31.7 g/dL (31.0-36.0); Mean Platelet Volume 9.9 fL (7.4-10.4); Monocytes # (Auto) 0.41 K/mcL (0.10-0.90); Monocytes % (Auto) 7.7 % (1.0-12.0); Neutrophils % (Auto) 55.1 % (38.0-78.0); Platelet Count 174 K/mcL (140-440); RBC 4.71 M/mcL (3.59-5.38); WBC 5.3 K/mcL (4.5-11.0)
[2021-09-18 07:03] LABS: ALT/SGPT 7 U/L (<40); AST/SGOT 9 U/L (<32); Albumin 3.1 gm/dL (3.2-5.2); Albumin/Globulin Ratio 1.3 (1.0-2.3); Alkaline Phosphatase 56 U/L (39-117); Blood Urea Nitrogen 13 mg/dL (8-23); Calcium 8.9 mg/dL (8.6-10.4); Carbon Dioxide 22 mmol/L (22-30); Chloride 105 mmol/L (96-108); Globulin 2.3 gm/dL (2.2-3.7); Glomerular Filtration Rate 64; Glucose 100 mg/dL (70-105)
[2021-09-18] MEDS: PANTOPRAZOLE 40 MG TABLET PO SCH (07:15)
[2021-09-18] MEDS: ENOXAPARIN 40 MG/0.4 ML SYRINGE SQ SCH (08:38)
[2021-09-18] MEDS: DOCUSATE SODIUM 100 MG CAPSULE PO SCH ×2 (08:38→21:19)
--- NOTE | 2021-09-18 13:53 | Internal Med Progress Note ---
SUBJECTIVE Subjective Patient information: Note initiated : 09/18/21 at 1:52 pm Service Date, if different from initiated Date: [] Patient: Breann Bell 71 y/o F admitted on 09/15/21 for Low back pain. Chief Complaint: [] Interval history: 71-year-old female with obesity, obstructive sleep apnea diabetic neuropathy CKD diabetic retinopathy hyperlipidemia anemia GERD hypertension hypothyroidism was brought to the ER because of shortness of breath and patient was hypoxic 70% on room air she has been having worsening chills and increasing sputum production for the last few days was evaluated in the ER found to have right lower lobe pneumonia and hypoxia needing 6 L of oxygen patient was admitted for further management 09/16 Hypoxia significantly improved Patient is able to sit up without any respiratory distress Her back pain improved Patient had trouble with the CPAP last night and her family supposed to bring home CPAP tonight 09/17 Hypoxia improving still needing 3 L nasal cannula oxygen Leukocytosis resolved 09/18 Patient continues to be hypoxic For hypoxia is not improving will obtain a CTA Review of systems Constitutional: Chills fever and fatigue Eyes: no vision changes or pain Cardiovascular: no chest pain, no palpitations Respiratory: Shortness of breath improved but still having hypoxia oxygenation dropped into the low 80s Gastrointestinal: no nausea and stil have abdominal discomfort. Genitourinary: no dysuria or difficulty voiding Musculoskeletal: Back pain worse with a deep inspiration more on the right side Integumentary: no skin lesion or wound Neurological: no focal weakness or numbness Psychiatric: no anxiety or depression Physical exam Head: distress needing 6 L of oxygen Eyes: normal appearance, no scleral icterus. Neck: full ROM Respiratory: Continued having crackles no wheezing Cardiovascular: normal rate and rhythm, S1, S2. GI/Abdominal: soft, nontender, no guarding. Extremities: full range of motion, nontender. Neurological: CN II-XII intact, intact motor, intact sensation. Psychiatric: normal mood. Skin: warm, normal color Constitutional Vitals: Vital Signs Temp Pulse Resp BP Pulse Ox 97.2 F 74 16 128/74 91 09/18/21 12:00 09/18/21 12:00 09/18/21 12:00 09/18/21 12:00 09/18/21 12:00 Period Temp Pulse Resp BP Sys/Chavira Pulse Ox Last 24 Hr 97.2 F-99 F 64-86 - 112-143/69-86 82-95 Intake and Output 09/17/21 09/18/21 09/18/21 21:59 05:59 13:59 Intake Total 940 300 850 Output Total 750 450 350 Balance 190 -150 500 Weight 111.947 kg Intake & Output: Intake & Output 09/17/21 09/18/21 09/18/21 21:59 05:59 13:59 Intake Total 940 300 850 Output Total 750 450 350 Balance 190 -150 500 Weight 111.947 kg Intake: IV 50 100 50 Zosyn 3.375 gm In Dextrose 5% 50 100 50 in Water 50 ml @ 100 mls/hr IV Q6H [facility] Rx#:[id number] Oral 890 200 800 Output: Void Amount 750 450 350 Other: Meal Breakfast Percent of Meal Consumed 75% Urine Appearance Clear Clear Urine Color Bright Yellow Bright Yellow OBJ DATA Labs CBC & Chem 7: 09/18/21 05:39 09/18/21 05:39 Labs: Abnormal Lab Results 09/18/21 09/18/21 09/17/21 05:39 05:39 05:41 WBC RBC Hgb Hct POC Hct RDW 17.0 H Neut % (Auto) Lymph % (Auto) Eos % (Auto) 8.8 H Lymph # (Auto) 1.47 L [place] # (Auto) Absolute Neutrophils Carbon Dioxide 20 L Glucose POC Glucose Calcium Total Bilirubin 1.1 H NT-Pro-B Natriuret Pep Total Protein 5.4 L Albumin 3.1 L POC Troponin I 09/17/21 09/16/21 09/16/21 05:41 07:11 07:11 WBC 11.9 H RBC Hgb Hct 45.9 H POC Hct RDW 17.2 H 17.5 H Neut % (Auto) Lymph % (Auto) 14.3 L Eos % (Auto) Lymph # (Auto) [place] # (Auto) 0.93 H Absolute Neutrophils 9.12 H Carbon Dioxide Glucose 123 H POC Glucose Calcium 8.5 L Total Bilirubin 1.1 H NT-Pro-B Natriuret Pep Total Protein 5.5 L Albumin POC Troponin I 09/15/21 09/15/21 09/15/21 17:00 16:57 16:56 WBC RBC Hgb Hct POC Hct 51.0 H RDW Neut % (Auto) Lymph % (Auto) Eos % (Auto) Lymph # (Auto) [place] # (Auto) Absolute Neutrophils Carbon Dioxide Glucose POC Glucose 158 H Calcium Total Bilirubin NT-Pro-B Natriuret Pep 690.8 H Total Protein Albumin POC Troponin I 0.01 L 09/15/21 16:56 WBC RBC 5.82 H Hgb 16.3 H Hct 50.6 H POC Hct RDW 18.1 H Neut % (Auto) 84.8 H Lymph % (Auto) 7.3 L Eos % (Auto) Lymph # (Auto) 0.60 L [place] # (Auto) Absolute Neutrophils Carbon Dioxide Glucose POC Glucose Calcium Total Bilirubin NT-Pro-B Natriuret Pep Total Protein Albumin POC Troponin I Meds: Medications Acetaminophen (Acetaminophen 325 Mg Tablet) 650 mg PO Q6HP PRN; Protocol PRN Reason: Per Pain Protocol/Fever > 101 Last Admin: 09/15/21 21:58 Dose: 650 mg Documented by: Albuterol Sulfate (Albuterol Sulfate 2.5 Mg/3 Ml Nebulizer) 2.5 mg NEB Q2HP PRN PRN Reason: Shortness Of Breath Last Admin: 09/18/21 08:20 Dose: 2.5 mg Documented by: Albuterol/Ipratropium (Ipratropium/Albuterol 3 Ml Ampul.Neb) 3 ml NEB Q6HRT [facility] Last Admin: 09/18/21 13:47 Dose: 3 ml Documented by: Bisacodyl (Bisacodyl 10 Mg Supp.Rect) 10 mg [place] Q2-3DAYS PRN PRN Reason: Constipation Docusate Sodium (Docusate Sodium 100 Mg Capsule) 100 mg PO BID [facility] Last Admin: 09/18/21 08:38 Dose: 100 mg Documented by: Enoxaparin Sodium (Enoxaparin 40 Mg/0.4 Ml Syringe) 40 mg SQ DAILY [facility] Last Admin: 09/18/21 08:38 Dose: 40 mg Documented by: Hydralazine HCl (Hydralazine 20 Mg/Ml Vial) 10 mg IV Q4-6HP PRN PRN Reason: Hypertension Piperacillin Sod/Tazobactam (Sod 3.375 gm/ Dextrose) 50 mls @ 100 mls/hr IV Q6H [facility]; Protocol Last Infusion: 09/18/21 12:21 Dose: Infused Documented by: Magnesium Hydroxide (Magnesium Hydroxide 30 Ml Oral.Susp) 30 ml PO DAILYP PRN PRN Reason: Constipation Naloxone HCl (Naloxone Hcl 0.4 Mg/Ml Vial) 0.1 mg IV Q2MIN PRN PRN Reason: Opiate Reversal Ondansetron HCl (Ondansetron 4 Mg/2 Ml Vial) 4 mg IV Q6HP PRN PRN Reason: Nausea And Vomiting Ondansetron HCl (Ondansetron 4 Mg Odt Tablet) 4 mg SL Q6HP PRN PRN Reason: Nausea And Vomiting Pantoprazole Sodium (Pantoprazole 40 Mg Tablet) 40 mg PO QAMAC [facility] Last Admin: 09/18/21 07:15 Dose: 40 mg Documented by: Prochlorperazine (Prochlorperazine 10 Mg/2 Ml Vial) 5 mg IV Q4HP PRN PRN Reason: Nausea And Vomiting Quetiapine Fumarate (Quetiapine 25 Mg Tablet) 12.5 mg PO HSP PRN PRN Reason: iNSOMNIA-2nd option Senna (Sennosides 1 Tablet) 2 tab PO HS [facility] Last Admin: 09/17/21 21:00 Dose: 2 tab Documented by: Sodium Chloride (0.9 % Sodium Chloride 10 Ml Syringe) 10 ml IV Q8 [facility] Last Admin: 09/18/21 05:24 Dose: 10 ml Documented by: Zolpidem Tartrate (Zolpidem 5 Mg Tablet) 5 mg PO HSP PRN PRN Reason: Insomnia Last Admin: 09/17/21 21:00 Dose: 5 mg Documented by: A/P Narrative Plan of Treatment: Acute hypoxemic respiratory failure Community-acquired pneumonia History typical for pneumonia with chest x-ray showing consolidation of the right lower lobe Denied any history suggestive of aspiration History of obesity sleep apnea uses CPAP History of diabetes Plan Hypoxia improving Continue Zosyn and azithromycin will change to Augmentin and doxycycline upon discharge COVID test ordered in the ER Ordered a CTA due to persistent hypoxia If CT is negative and patient continued to be hypoxic will consider broadening the antibiotic spectrum Type 2 diabetes Sliding scale insulin We will hold her p.o. medications Sleep apnea Obesity hypoventilation Continue CPAP Insomnia She takes Ambien 5 mg-continued DVT prophylaxis-subcu Lovenox CODE STATUS-full code Expect length of stay-1 midnights Time Spent With Patient Time: Total time spent is greater than 50% in coordination of care (as documented) at patient's floor/unit and/or counseling patient: QUALITY VTE Deep Vein Thrombosis/Pulmonary Embolism Present on Admission: No
[2021-09-18] MEDS ORDERED: IOPAMIDOL 100 ML BOTTLE IV ONE (14:42)
--- NOTE | 2021-09-18 15:09 | Cat Scan Report ---
CLINICAL INFORMATION: Hypoxia COMPARISON: None. TECHNIQUE: 80ml of Isovue-370 were injected intravenously. Using SmartPrep to maximize pulmonary artery opacification, .625mm helical slices were obtained from the lung apices through the lung bases. Following reconstruction, 2.5 mm sagittal, coronal, and axial reformations were processed. The exam was reviewed at mediastinal, lung, and bone windows. The exam was performed using radiation dose optimization techniques including, but not limited to, automated exposure control, adjustment of the mA and/or kV according to patient size and use of iterative reconstruction technique. FINDINGS: Pulmonary parenchymal no show moderate centrilobular emphysema featuring chronic bronchitis with elevated lung volumes and wall thickening/ dilatation of the bronchi and there are multiple bullae in the upper lobes. Large patchy alveolar infiltrates in the right lower, middle and upper lobes appreciated. Small vague infiltrate seen in the posterior left lower lobe. Pleural spaces are unremarkable-no effusions. Mediastinal windows show the heart is grossly normal in size and configuration. The pulmonary arteries are normal diameter and well-opacified without evidence of embolus. Thoracic aorta is also normal diameter and well-opacified. There is no adenopathy in the mediastinal, hilar or axillary regions. Gastric lap band constricts the gastric fundal region. The gastric cardia and the entire esophagus are markedly dilated with diffuse wall thickening of the esophagus suggesting peptic disease. There are also air-fluid level within the esophagus. The thyroid is unremarkable. Bone windows show mild diffuse osteoporosis. No focal osseous lesions. Images through the superior abdomen show multiple tiny stones layering dependently within the gallbladder. There is a 3.2 cm cyst in the mid left kidney. Spleen pancreas and liver grossly normal. IMPRESSION: 1. Large infiltrates throughout the right upper, middle and lower lobes with small posterior left lower lobe infiltrate. Suspect aspiration. Infection less likely 2. Gastric lap band constricting the fundus. The gastric cardia and the entire esophagus are markedly dilated possibly related to the lap band. This may predispose to aspiration. 3. No evidence of pulmonary embolus 4. Moderate centrilobular emphysema. 5. Cholelithiasis: tiny gallstones in the gallbladder. 6. 3.4 cm cyst in the left kidney Interpreted and Authenticated by: Pito Bocanegra 09/18/21
[2021-09-18] MEDS: SENNOSIDES 1 TABLET PO SCH (21:19)
[2021-09-19] MEDS: IPRATROPIUM/ALBUTEROL 3 ML AMPUL.NEB NEB SCH ×4 (00:10→19:13)
[2021-09-19] MEDS: 0.9 % SODIUM CHLORIDE 10 ML SYRINGE IV SCH ×3 (06:01→22:06)
[2021-09-19] MEDS: PIPERACILLIN SODIUM/TAZOBACTAM 3.375 GM in DEXTROSE 5% IN WATER 50 ML IV SCH ×4 (06:02→23:56)
[2021-09-19 06:55] LABS: Basophils # (Auto) 0.03 K/mcL (0.00-0.30); Basophils % (Auto) 0.6 % (0.0-2.0); Eosinophils # (Auto) 0.49 K/mcL (0.00-0.70); Hematocrit 45.7 % (34.1-44.9); Hemoglobin 14.7 g/dL (11.2-15.7); Lymphocytes # (Auto) 1.29 K/mcL (1.50-4.80); Lymphocytes % (Auto) 26.4 % (15.5-49.0); Mean Cell Volume 88.4 fL (80.0-100.0); Mean Corpuscular HGB Conc 32.2 g/dL (31.0-36.0); Mean Platelet Volume 9.8 fL (7.4-10.4); Monocytes # (Auto) 0.41 K/mcL (0.10-0.90); Monocytes % (Auto) 8.4 % (1.0-12.0); Neutrophils % (Auto) 54.6 % (38.0-78.0); Platelet Count 188 K/mcL (140-440); RBC 5.17 M/mcL (3.59-5.38); Red Cell Distribution Width 17.1 % (11.5-14.5); WBC 4.9 K/mcL (4.5-11.0)
[2021-09-19] MEDS: PANTOPRAZOLE 40 MG TABLET PO SCH (07:31)
[2021-09-19 07:40] LABS: ALT/SGPT 6 U/L (<40); AST/SGOT 12 U/L (<32); Albumin 3.4 gm/dL (3.2-5.2); Albumin/Globulin Ratio 1.2 (1.0-2.3); Alkaline Phosphatase 66 U/L (39-117); Bilirubin,Total 1.1 mg/dL (0.1-1.0); Blood Urea Nitrogen 11 mg/dL (8-23); Calcium 9.2 mg/dL (8.6-10.4); Carbon Dioxide 20 mmol/L (22-30); Chloride 104 mmol/L (96-108); Globulin 2.8 gm/dL (2.2-3.7); Glomerular Filtration Rate 64; Glucose 81 mg/dL (70-105)
[2021-09-19] MEDS: DOCUSATE SODIUM 100 MG CAPSULE PO SCH ×2 (08:14→22:06)
[2021-09-19] MEDS: ENOXAPARIN 40 MG/0.4 ML SYRINGE SQ SCH (08:15)
--- NOTE | 2021-09-19 16:07 | XRay Report ---
INDICATION: esophageal obstruction ? TECHNIQUE: Routine barium swallow performed by the speech pathologist. 45 seconds fluoroscopy utilized COMPARISON: None. FINDINGS: There is definite airway penetration with thin liquid in both neutral and chin tuck position. There may be minimal aspiration although this is not definite. Quality of the study is suboptimal due to difficulty in evaluation due to large shoulders. IMPRESSION: 1. Airway penetration with thin liquid 2. Possible trace aspiration is not considered definite Interpreted and Authenticated by: Pito Burns 09/19/21
[2021-09-19] MEDS: ZOLPIDEM 5 MG TABLET PO PRN (22:05)
[2021-09-19] MEDS: SENNOSIDES 1 TABLET PO SCH (22:06)
[2021-09-20] MEDS: 0.9 % SODIUM CHLORIDE 10 ML SYRINGE IV SCH ×3 (06:02→22:09)
[2021-09-20] MEDS: PIPERACILLIN SODIUM/TAZOBACTAM 3.375 GM in DEXTROSE 5% IN WATER 50 ML IV SCH ×3 (06:02→17:27)
[2021-09-20 06:36] LABS: Basophils # (Auto) 0.04 K/mcL (0.00-0.30); Basophils % (Auto) 0.8 % (0.0-2.0); Eosinophils # (Auto) 0.47 K/mcL (0.00-0.70); Eosinophils % (Auto) 9.3 % (0.0-7.0); Hematocrit 46.3 % (34.1-44.9); Hemoglobin 15.3 g/dL (11.2-15.7); Lymphocytes # (Auto) 1.01 K/mcL (1.50-4.80); Lymphocytes % (Auto) 20.1 % (15.5-49.0); Mean Cell Volume 85.9 fL (80.0-100.0); Monocytes % (Auto) 9.9 % (1.0-12.0); Neutrophils % (Auto) 59.9 % (38.0-78.0); Platelet Count 183 K/mcL (140-440); RBC 5.39 M/mcL (3.59-5.38); Red Cell Distribution Width 16.8 % (11.5-14.5)
[2021-09-20 07:02] LABS: ALT/SGPT 9 U/L (<40); AST/SGOT 18 U/L (<32); Albumin 3.5 gm/dL (3.2-5.2); Albumin/Globulin Ratio 1.3 (1.0-2.3); Alkaline Phosphatase 67 U/L (39-117); Blood Urea Nitrogen 9 mg/dL (8-23); Calcium 9.3 mg/dL (8.6-10.4); Carbon Dioxide 23 mmol/L (22-30); Chloride 104 mmol/L (96-108); Globulin 2.8 gm/dL (2.2-3.7); Glomerular Filtration Rate 64; Glucose 77 mg/dL (70-105)
[2021-09-20] MEDS: IPRATROPIUM/ALBUTEROL 3 ML AMPUL.NEB NEB SCH ×4 (07:41→19:27)
[2021-09-20] MEDS: PANTOPRAZOLE 40 MG TABLET PO SCH (08:47)
[2021-09-20] MEDS: ENOXAPARIN 40 MG/0.4 ML SYRINGE SQ SCH (08:47)
[2021-09-20] MEDS: DOCUSATE SODIUM 100 MG CAPSULE PO SCH ×2 (08:47→22:08)
--- NOTE | 2021-09-20 11:16 | Discharge Summary ---
Discharge Provider Provider IMPORTANT FOLLOW-UP INFORMATION FOR PCP: Patient information: Note initiated : 09/20/21 at 11:15 am Service Date, if different from initiated Date: [] Patient: Breann Bell 71 y/o F admitted on 09/15/21 for Low back pain. Chief Complaint: [] Date of admission: 09/15/21 20:29 Discharge date: 09/20/21 Primary care physician: Ammy Jeffries Consults: 09/15/21 Consult to Physician [CONS] Stat Comment: Consulting Provider: Dewey Lentz Reason For Exam: Physician to Consult COURSE Hospital Course Hospital course: Acute hypoxemic respiratory failure Community-acquired pneumonia History typical for pneumonia with chest x-ray showing consolidation of the right lower lobe Denied any history suggestive of aspiration History of obesity sleep apnea uses CPAP History of diabetes Plan Hypoxia improvED -needing 3 to 5 L of nasal cannula oxygen Antibiotic changed to Augmentin and COVID test ordered in the ER-negative Ordered a CTA no evidence of PE showing a large pneumonia of the right middle and lower lobe Type 2 diabetes Sliding scale insulin We will hold her p.o. medications Sleep apnea Obesity hypoventilation Continue CPAP Insomnia She takes Ambien 5 mg-continued 71-year-old female with obesity, obstructive sleep apnea diabetic neuropathy CKD diabetic retinopathy hyperlipidemia anemia GERD hypertension hypothyroidism was brought to the ER because of shortness of breath and patient was hypoxic 70% on room air she has been having worsening chills and increasing sputum production for the last few days was evaluated in the ER found to have right lower lobe pneumonia and hypoxia needing 6 L of oxygen patient was admitted for further management 09/16 Hypoxia significantly improved Patient is able to sit up without any respiratory distress Her back pain improved Patient had trouble with the CPAP last night and her family supposed to bring home CPAP tonight 09/17 Hypoxia improving still needing 3 L nasal cannula oxygen Leukocytosis resolved 09/18 Patient continues to be hypoxic For hypoxia is not improving will obtain a CTA 09/20 Patient continues to do well Her oxygenation improved Occasionally her oxygen level dropped less than 80 with activities Patient does have chronic lung disease Discussed with the patient and she will be discharged home She needs to follow-up with pulmonology because of chronic lung disease She had a gastroenterology to evaluate her esophageal and upper stomach constriction due to the Lap-Band Needs to follow-up with the primary care Review of systems Constitutional: Chills fever and fatigue Eyes: no vision changes or pain Cardiovascular: no chest pain, no palpitations Respiratory: Shortness of breath improved but still having hypoxia oxygenation dropped into the low 80s Gastrointestinal: no nausea and stil have abdominal discomfort. Genitourinary: no dysuria or difficulty voiding Musculoskeletal: Back pain worse with a deep inspiration more on the right side Integumentary: no skin lesion or wound Neurological: no focal weakness or numbness Psychiatric: no anxiety or depression Physical exam Head: distress needing 6 L of oxygen Eyes: normal appearance, no scleral icterus. Neck: full ROM Respiratory: Continued having crackles no wheezing Cardiovascular: normal rate and rhythm, S1, S2. GI/Abdominal: soft, nontender, no guarding. Extremities: full range of motion, nontender. Neurological: CN II-XII intact, intact motor, intact sensation. Psychiatric: normal mood. Skin: warm, normal color Discharge diagnosis: Aspiration pneumonia Time Spent with Patient Time attestation: Total time spent providing and/or coordinating discharge services: Time spent: Greater than 30 minutes EXAM Constitutional Vitals: Temp Pulse Resp BP Pulse Ox 97.4 F 76 16 124/75 92 09/20/21 07:27 09/20/21 07:42 09/20/21 07:42 09/20/21 07:27 09/20/21 07:50 Discharge Data Data Completed and Pending Labs on day of discharge: Labs from last 24 hours 09/20/21 09/20/21 05:46 05:45 WBC 5.0 RBC 5.39 H Hgb 15.3 Hct 46.3 H MCV 85.9 MCH 28.4 MCHC 33.0 RDW 16.8 H Plt Count 183 MPV 10.0 Neut % (Auto) 59.9 Lymph % (Auto) 20.1 [place] % (Auto) 9.9 Eos % (Auto) 9.3 H Baso % (Auto) 0.8 Lymph # (Auto) 1.01 L [place] # (Auto) 0.50 Eos # (Auto) 0.47 Baso # (Auto) 0.04 Absolute Neutrophils 3.01 Sodium 138 Potassium 4.5 Chloride 104 Carbon Dioxide 23 Anion Gap 11.0 BUN 9 Creatinine 0.9 GFR Calculation 64 Glucose 77 Calcium 9.3 Magnesium 2.2 Total Bilirubin 1.0 AST 18 ALT 9 Alkaline Phosphatase 67 Total Protein 6.3 Albumin 3.5 Globulin 2.8 Albumin/Globulin Ratio 1.3 Preliminary micro results at discharge 09/18/21 08:56 Gram Stain - Preliminary Sputum source - Expectorated Sputum Culture - Preliminary Discharge Plan Patient/Caregiver Discharge Instructions Activity: increase activity as tolerated Diet: Thickened Liquids Activity Restrictions/Additional Instructions: Gastroenterology evaluation in 2 to 3 weeks Pulmonology in 2 to 3 weeks Primary care in 1 to 2 weeks Prescriptions: New amoxicillin-pot clavulanate 875-125 mg tablet 1 tab PO BID Qty: 14 0RF doxycycline hyclate 100 mg capsule 100 mg PO BID Qty: 14 0RF (DME) nebulizers [facility] [place] See Rx Instructions .Route Qty: 1 0RF Rx Instructions: As directed ipratropium-albuterol 0.5 mg-3 mg(2.5 mg base)/3 mL solution for nebulization 3 ml inhalation Q6H PRN (Reason: shortness of breath or wheezing) Qty: 90 2RF Continued acebutolol 400 mg capsule 400 mg capsule 400 mg PO QDAY Qty: 90 2RF zolpidem 10 mg tablet See Rx Instructions PO QHS Qty: 30 2RF Rx Instructions: 10mg, 1/2 - 1 PO QHS; levothyroxine [Synthroid] 175 mcg tablet 175 mcg PO QDAY Qty: 90 4RF omeprazole 20 mg capsule,delayed release(DR/EC) See Rx Instructions .ROUTE .COMPLEX Qty: 90 0RF Dose Instruction: TAKE ONE CAPSULE BY MOUTH EACH MORNING BEFORE BREAKFAST Rx Instructions: TAKE ONE CAPSULE BY MOUTH EACH MORNING BEFORE BREAKFAST buspirone 30 mg tablet See Rx Instructions .ROUTE .COMPLEX Qty: 135 0RF Dose Instruction: TAKE 1 TABLET BY MOUTH ONCE IN THE MORNING AND 1/2 TABLET AT BEDTIME ALONG WITH PAXIL FOR DEPRESSION Rx Instructions: TAKE 1 TABLET BY MOUTH ONCE IN THE MORNING AND 1/2 TABLET AT BEDTIME ALONG WITH PAXIL FOR DEPRESSION pioglitazone 15 mg tablet See Rx Instructions .ROUTE .COMPLEX Qty: 50 2RF Dose Instruction: TAKE 1/2 TABLET BY MOUTH DAILY Rx Instructions: TAKE 1/2 TABLET BY MOUTH DAILY atorvastatin 80 mg tablet 80 mg PO QHS Qty: 100 3RF losartan 100 mg tablet 100 mg PO QDAY Qty: 100 2RF aspirin [Adult Aspirin Regimen] 81 mg tablet,delayed release (DR/EC) 81 mg PO QDAY 0RF coenzyme [id number] E 100 mg-100 unit capsule 100-100 mg-unit capsule 1 cap PO QDAY 0RF cholecalciferol (vitamin D3) 1,000 mg PO QDAY 0RF paroxetine HCl 20 mg tablet 20 mg PO QDAY 0RF furosemide 20 mg tablet 20 mg PO QDAY PRN (Reason: Edema) 0RF Follow Up Plan Follow up with: Ammy Jeffries ARNP [Primary Care Provider] - Patient Disposition: Home, Self-Care Plan of Treatment: Acute hypoxemic respiratory failure Community-acquired pneumonia History typical for pneumonia with chest x-ray showing consolidation of the right lower lobe Denied any history suggestive of aspiration History of obesity sleep apnea uses CPAP History of diabetes Plan Hypoxia improving Continue Zosyn and azithromycin will change to Augmentin and doxycycline upon discharge COVID test ordered in the ER Ordered a CTA due to persistent hypoxia If CT is negative and patient continued to be hypoxic will consider broadening the antibiotic spectrum Type 2 diabetes Sliding scale insulin We will hold her p.o. medications Sleep apnea Obesity hypoventilation Continue CPAP Insomnia She takes Ambien 5 mg-continued DVT prophylaxis-subcu Lovenox CODE STATUS-full code Expect length of stay-1 midnights QUALITY VTE Deep Vein Thrombosis/Pulmonary Embolism Present on Admission: No
--- NOTE | 2021-09-20 14:51 | Internal Med Progress Note ---
SUBJECTIVE Subjective Patient information: Note initiated : 09/20/21 at 2:44 pm Service Date, if different from initiated Date: [] Patient: Breann Bell 71 y/o F admitted on 09/15/21 for Low back pain. Chief Complaint: [] Interval history: 71-year-old female with obesity, obstructive sleep apnea diabetic neuropathy CKD diabetic retinopathy hyperlipidemia anemia GERD hypertension hypothyroidism was brought to the ER because of shortness of breath and patient was hypoxic 70% on room air she has been having worsening chills and increasing sputum production for the last few days was evaluated in the ER found to have right lower lobe pneumonia and hypoxia needing 6 L of oxygen patient was admitted for further management 09/16 Hypoxia significantly improved Patient is able to sit up without any respiratory distress Her back pain improved Patient had trouble with the CPAP last night and her family supposed to bring home CPAP tonight 09/17 Hypoxia improving still needing 3 L nasal cannula oxygen Leukocytosis resolved 09/18 Patient continues to be hypoxic For hypoxia is not improving will obtain a CTA 09/21 Constitutional Vitals: Vital Signs Temp Pulse Resp BP Pulse Ox 97.4 F 79 18 124/75 92 09/20/21 07:27 09/20/21 13:00 09/20/21 13:00 09/20/21 07:27 09/20/21 13:00 Period Temp Pulse Resp BP Sys/Chavira Pulse Ox Last 24 Hr 96.7 F-98.4 F 63-85 16-20 122-145/71-84 91-97 Intake and Output 09/20/21 09/20/21 09/20/21 05:59 13:59 21:59 Intake Total 250 100 Output Total 650 Balance -400 100 Weight 108.862 kg Patient Weight 09/21/21 05:59 Weight 108.862 kg Intake & Output: Intake & Output 09/20/21 09/20/21 09/20/21 05:59 13:59 21:59 Intake Total 250 100 Output Total 650 Balance -400 100 Weight 108.862 kg Intake: IV 50 100 Zosyn 3.375 gm In Dextrose 5% 50 100 in Water 50 ml @ 100 mls/hr IV Q6H [facility] Rx#:[id number] Oral 200 Output: Void Amount 650 Other: Urine Appearance Clear Urine Color Bright Yellow Exam: General: Alert, Awake, No acute Distress, obese Eyes/N/T: EOMI, Head/Neck: neck supple, CV: RRR, No murmurs, normal s1/s2 Pulm: b/l, no wheezing Abd: soft, nontender, +BS x4 Ext: no clubbing/cyanosis/edema Neuro: Alert, no focal deficits, moves all extremities, Skin: warm/dry OBJ DATA Labs CBC & Chem 7: 09/20/21 05:46 09/20/21 05:45 Labs: Abnormal Lab Results 09/20/21 09/19/21 09/19/21 05:46 05:09 05:09 RBC 5.39 H Hct 46.3 H 45.7 H RDW 16.8 H 17.1 H Eos % (Auto) 9.3 H 10.0 H Lymph # (Auto) 1.01 L 1.29 L Carbon Dioxide 20 L Total Bilirubin 1.1 H Total Protein Albumin 09/18/21 09/18/21 05:39 05:39 RBC Hct RDW 17.0 H Eos % (Auto) 8.8 H Lymph # (Auto) 1.47 L Carbon Dioxide Total Bilirubin Total Protein 5.4 L Albumin 3.1 L Meds: Medications Acetaminophen (Acetaminophen 325 Mg Tablet) 650 mg PO Q6HP PRN; Protocol PRN Reason: Per Pain Protocol/Fever > 101 Last Admin: 09/15/21 21:58 Dose: 650 mg Documented by: Albuterol Sulfate (Albuterol Sulfate 2.5 Mg/3 Ml Nebulizer) 2.5 mg NEB Q2HP PRN PRN Reason: Shortness Of Breath Last Admin: 09/18/21 08:20 Dose: 2.5 mg Documented by: Albuterol/Ipratropium (Ipratropium/Albuterol 3 Ml Ampul.Neb) 3 ml NEB Q6HRT [facility] Last Admin: 09/20/21 12:56 Dose: 3 ml Documented by: Bisacodyl (Bisacodyl 10 Mg Supp.Rect) [address] Q2-3DAYS PRN PRN Reason: Constipation Docusate Sodium (Docusate Sodium 100 Mg Capsule) 100 mg PO BID [facility] Last Admin: 09/20/21 08:47 Dose: 100 mg Documented by: Enoxaparin Sodium (Enoxaparin 40 Mg/0.4 Ml Syringe) 40 mg SQ DAILY [facility] Last Admin: 09/20/21 08:47 Dose: 40 mg Documented by: Hydralazine HCl (Hydralazine 20 Mg/Ml Vial) 10 mg IV Q4-6HP PRN PRN Reason: Hypertension Piperacillin Sod/Tazobactam (Sod 3.375 gm/ Dextrose) 50 mls @ 100 mls/hr IV Q6H [facility]; Protocol Last Infusion: 09/20/21 12:23 Dose: Infused Documented by: Magnesium Hydroxide (Magnesium Hydroxide 30 Ml Oral.Susp) 30 ml PO DAILYP PRN PRN Reason: Constipation Naloxone HCl (Naloxone Hcl 0.4 Mg/Ml Vial) 0.1 mg IV Q2MIN PRN PRN Reason: Opiate Reversal Ondansetron HCl (Ondansetron 4 Mg/2 Ml Vial) 4 mg IV Q6HP PRN PRN Reason: Nausea And Vomiting Ondansetron HCl (Ondansetron 4 Mg Odt Tablet) 4 mg SL Q6HP PRN PRN Reason: Nausea And Vomiting Pantoprazole S[facility] ([facility] 40 Mg Tablet) [facility] Admin: 09/20/21 08:47 Dose: 40 mg Documented by: Prochlorperazine (Prochlorperazine 10 Mg/2 Ml Vial) 5 mg IV Q4HP PRN PRN Reason: Nausea And Vomiting Quetiapine Fumarate (Quetiapine 25 Mg Tablet) 12.5 mg PO HSP PRN PRN Reason: iNSOMNIA-2nd option Senna (Sennosides 1 Tablet) 2 tab PO HS [facility] Last Admin: 09/19/21 22:06 Dose: Not Given Documented by: Sodium Chloride (0.9 % Sodium Chloride 10 Ml Syringe) 10 ml IV Q8 [facility] Last Admin: 09/20/21 13:38 Dose: 10 ml Documented by: Zolpidem Tartrate (Zolpidem 5 Mg Tablet) 5 mg PO HSP PRN PRN Reason: Insomnia Last Admin: 09/19/21 22:05 Dose: 5 mg Documented by: A/P Narrative A/P Narrative: A: *Acute hypoxemic respiratory failure: 2/2 PNA, likely Aspiration PNA -on 4L *PNA, likely Aspiration: *Oropharyngeal dysphagia, mild-mod: *JAMES uses CPAP: *COPD: may need home O2 *Diabetes: *Anxiety: *GERD: *HTN/HLD: on BB/ARB *Obese: BMI 45 Plan: -Zosyn and azithromycin will change to Augmentin and doxycycline upon discharge -dysphagia diet per ST -IS/Acapella -pioglitizone, ssi -Continue CPAP -cont BB/ARB -f/u with GI/Surgery regarding lap band -f/u with Pulm regarding copd eval / PFT's -ppx: Lovenox / home ppi CODE STATUS-full code Time Spent With Patient Time: Total time spent is greater than 50% in coordination of care (as documented) at patient's floor/unit and/or counseling patient: QUALITY VTE Deep Vein Thrombosis/Pulmonary Embolism Present on Admission: No
[2021-09-20] MEDS ORDERED: FUROSEMIDE 40 MG/4 ML VIAL IV ONE (14:58)
[2021-09-20] MEDS ORDERED: FUROSEMIDE 20 MG TABLET PO PRN (15:00)
[2021-09-20] MEDS: PIOGLITAZONE 15 MG TABLET PO SCH (15:39)
[2021-09-20] MEDS: PARoxetine 20 MG TABLET PO SCH (15:39)
[2021-09-20] MEDS: SENNOSIDES 1 TABLET PO SCH (22:08)
[2021-09-20] MEDS: ATORVASTATIN 40 MG TABLET PO SCH (22:08)
[2021-09-20] MEDS: ZOLPIDEM 5 MG TABLET PO PRN (22:08)
[2021-09-20] MEDS: busPIRone 15 MG TABLET PO SCH (22:09)
[2021-09-21] MEDS: IPRATROPIUM/ALBUTEROL 3 ML AMPUL.NEB NEB SCH ×4 (00:29→18:44)
[2021-09-21] MEDS: PIPERACILLIN SODIUM/TAZOBACTAM 3.375 GM in DEXTROSE 5% IN WATER 50 ML IV SCH ×2 (00:29→05:45)
[2021-09-21] MEDS: 0.9 % SODIUM CHLORIDE 10 ML SYRINGE IV SCH ×3 (05:46→20:28)
[2021-09-21] MEDS: LEVOTHYROXINE 75 MCG TABLET PO SCH (07:26)
[2021-09-21] MEDS: LEVOTHYROXINE 100 MCG TABLET PO SCH (07:26)
[2021-09-21] MEDS: PANTOPRAZOLE 40 MG TABLET PO SCH (07:26)
--- NOTE | 2021-09-21 08:33 | Internal Med Progress Note ---
SUBJECTIVE Subjective Patient information: Note initiated : 09/21/21 at 8:31 am Service Date, if different from initiated Date: [] Patient: Breann Bell 71 y/o F admitted on 09/15/21 for Low back pain. Chief Complaint: [] Interval history: 71-year-old female with obesity, obstructive sleep apnea diabetic neuropathy CKD diabetic retinopathy hyperlipidemia anemia GERD hypertension hypothyroidism was brought to the ER because of shortness of breath and patient was hypoxic 70% on room air she has been having worsening chills and increasing sputum production for the last few days was evaluated in the ER found to have right lower lobe pneumonia and hypoxia needing 6 L of oxygen patient was admitted for further management 09/16 Hypoxia significantly improved Patient is able to sit up without any respiratory distress Her back pain improved Patient had trouble with the CPAP last night and her family supposed to bring home CPAP tonight 09/17 Hypoxia improving still needing 3 L nasal cannula oxygen Leukocytosis resolved 09/18 Patient continues to be hypoxic For hypoxia is not improving will obtain a CTA 09/21 Patient states that her cough is little better today. Shortness of breath similar to yesterday. Still requiring 3 and half liters of oxygen desats when up moving around. Good urine output with Lasix yesterday and will provide a nother dose of IV Lasix today. Review of Systems: denies headache/fever/chills/nausea/vomiting/chest or abdominal pain/diarrhea. Otherwise see above. Constitutional Vitals: Vital Signs Temp Pulse Resp BP Pulse Ox 96.9 F L 87 17 136/78 91 09/21/21 03:08 09/21/21 07:58 09/21/21 07:58 09/21/21 03:08 09/21/21 08:00 Period Temp Pulse Resp BP Sys/Chavira Pulse Ox Last 24 Hr 96.8 F-97.6 F 79-93 17-20 131-153/77-94 88-94 Intake and Output 09/20/21 09/21/21 09/21/21 21:59 05:59 13:59 Intake Total 50 450 50 Output Total 1650 950 Balance -1600 -500 50 Weight 108.862 kg 107.139 kg Intake & Output: Intake & Output 09/20/21 09/21/21 09/21/21 21:59 05:59 13:59 Intake Total 50 450 50 Output Total 1650 950 Balance -1600 -500 50 Weight 108.862 kg 107.139 kg Intake: IV 50 50 50 Zosyn 3.375 gm In Dextrose 5% 50 50 50 in Water 50 ml @ 100 mls/hr IV Q6H [facility] Rx#:[id number] Oral 400 Output: Void Amount 1650 950 Other: Urine Appearance Clear Clear Urine Color Bright Yellow Bright Yellow Urine Odor Normal Normal Exam: General: Alert, Awake, No acute Distress, obese Eyes/N/T: EOMI, Head/Neck: neck supple, CV: RRR, No murmurs, normal s1/s2 Pulm: Diminished at bases b/l, no wheezing Abd: soft, nontender, +BS x4 Ext: no clubbing/cyanosis, mild b/l LE edema Neuro: Alert, no focal deficits, moves all extremities, Skin: warm/dry OBJ DATA Labs CBC & Chem 7: 09/20/21 05:46 09/20/21 05:45 Labs: Abnormal Lab Results 09/20/21 09/19/21 09/19/21 05:46 05:09 05:09 RBC 5.39 H Hct 46.3 H 45.7 H RDW 16.8 H 17.1 H Eos % (Auto) 9.3 H 10.0 H Lymph # (Auto) 1.01 L 1.29 L Carbon Dioxide 20 L Total Bilirubin 1.1 H Meds: Medications Acetaminophen (Acetaminophen 325 Mg Tablet) 650 mg PO Q6HP PRN; Protocol PRN Reason: Per Pain Protocol/Fever > 101 Last Admin: 09/15/21 21:58 Dose: 650 mg Documented by: Albuterol Sulfate (Albuterol Sulfate 2.5 Mg/3 Ml Nebulizer) 2.5 mg NEB Q2HP PRN PRN Reason: Shortness Of Breath Last Admin: 09/18/21 08:20 Dose: 2.5 mg Documented by: Albuterol/Ipratropium (Ipratropium/Albuterol 3 Ml Ampul.Neb) 3 ml NEB Q6HRT [facility] Last Admin: 09/21/21 07:58 Dose: 3 ml Documented by: Aspirin (Aspirin 81 Mg Tab.Chew) 81 mg PO DAILY [facility] Atorvastatin Calcium (Atorvastatin 40 Mg Tablet) 80 mg PO HS [facility] Last Admin: 09/20/21 22:08 Dose: 80 mg Documented by: Bisacodyl (Bisacodyl 10 Mg Supp.Rect) 10 mg CA Q2-3DAYS PRN PRN Reason: Constipation Buspirone HCl (Buspirone 15 Mg Tablet) 30 mg PO DAILY [facility] Buspirone HCl (Buspirone 15 Mg Tablet) 15 mg PO HS [facility] Last Admin: 09/20/21 22:09 Dose: 15 mg Documented by: Docusate Sodium (Docusate Sodium 100 Mg Capsule) 100 mg PO BID [facility] Last Admin: 09/20/21 22:08 Dose: Not Given Documented by: Enoxaparin Sodium (Enoxaparin 40 Mg/0.4 Ml Syringe) 40 mg SQ DAILY [facility] Last Admin: 09/20/21 08:47 Dose: 40 mg Documented by: Furosemide (Furosemide 20 Mg Tablet) 20 mg PO DAILYP PRN PRN Reason: Edema Hydralazine HCl (Hydralazine 20 Mg/Ml Vial) 10 mg IV Q4-6HP PRN PRN Reason: Hypertension Piperacillin Sod/Tazobactam (Sod 3.375 gm/ Dextrose) 50 mls @ 100 mls/hr IV Q6H [facility]; Protocol Last Infusion: 09/21/21 06:19 Dose: Infused Documented by: Levothyroxine Sodium (Levothyroxine 100 Mcg Tablet) 100 mcg PO ACB [facility] Last Admin: 09/21/21 07:26 Dose: 100 mcg Documented by: Levothyroxine Sodium (Levothyroxine 75 Mcg Tablet) 75 mcg PO QAMAC [facility] Last Admin: 09/21/21 07:26 Dose: 75 mcg Documented by: Losartan Potassium (Losartan 50 Mg Tablet) 100 mg PO DAILY [facility] Magnesium Hydroxide (Magnesium Hydroxide 30 Ml Oral.Susp) 30 ml PO DAILYP PRN PRN Reason: Constipation Naloxone HCl (Naloxone Hcl 0.4 Mg/Ml Vial) 0.1 mg IV Q2MIN PRN PRN Reason: Opiate Reversal Ondansetron HCl (Ondansetron 4 Mg/2 Ml Vial) 4 mg IV Q6HP PRN PRN Reason: Nausea And Vomiting Ondansetron HCl (Ondansetron 4 Mg Odt Tablet) 4 mg SL Q6HP PRN PRN Reason: Nausea And Vomiting Pantoprazole S[facility] ([facility] 40 Mg Tablet) [facility] Last Admin: 09/21/21 07:26 Dose: 40 mg Documented by: Paroxetine HCl (Paroxetine 20 Mg Tablet) 20 mg PO DAILY [facility] Last Admin: 09/20/21 15:39 Dose: 20 mg Documented by: Acebutolol 400 Mg (Capsule) 1 dose PO DAILY [facility] Pioglitazone HCl (Pioglitazone 15 Mg Tablet) 7.5 mg PO DAILY [facility] Last Admin: 09/20/21 15:39 Dose: 7.5 mg Documented by: Prochlorperazine (Prochlorperazine 10 Mg/2 Ml Vial) 5 mg IV Q4HP PRN PRN Reason: Nausea And Vomiting Quetiapine Fumarate (Quetiapine 25 Mg Tablet) 12.5 mg PO HSP PRN PRN Reason: iNSOMNIA-2nd option Senna (Sennosides 1 Tablet) 2 tab PO HS [facility] Last Admin: 09/20/21 22:08 Dose: Not Given Documented by: Sodium Chloride (0.9 % Sodium Chloride 10 Ml Syringe) 10 ml IV Q8 [facility] Last Admin: 09/21/21 05:46 Dose: 10 ml Documented by: Zolpidem Tartrate (Zolpidem 5 Mg Tablet) 5 mg PO HSP PRN PRN Reason: Insomnia Last Admin: 09/20/21 22:08 Dose: 5 mg Documented by: A/P Narrative A/P Narrative: A: *Acute hypoxemic respiratory failure: 2/2 PNA, likely Aspiration PNA -on 3.5L *PNA, likely Aspiration: *Oropharyngeal dysphagia, mild-mod: *JAMES uses CPAP: *COPD: may need home O2 *Diabetes: *Anxiety: *GERD: *HTN/HLD: on BB/ARB *Obese: BMI 45 Plan: -Zosyn(deescalate) and azithromycin will change to Augmentin and doxycycline upon discharge -dysphagia diet per ST, mildly thick liquids -IS/Acapella -pioglitizone, ssi -Lasix today for peripheral edema and monitor how her lungs respond to treatment -f/u cxr -Continue CPAP -cont BB/ARB -f/u with GI/Surgery regarding lap band -f/u with Pulm regarding copd eval / PFT's -ppx: Lovenox / home ppi CODE STATUS-full code Time Spent With Patient Time: Total time spent is greater than 50% in coordination of care (as documented) at patient's floor/unit and/or counseling patient: Total time spent with greater than 50% in coordination of care (as documented) at patient's floor/unit and/or counseling patient:: 35 - 50 minutes QUALITY VTE Deep Vein Thrombosis/Pulmonary Embolism Present on Admission: No
[2021-09-21] MEDS: ENOXAPARIN 40 MG/0.4 ML SYRINGE SQ SCH (08:59)
[2021-09-21] MEDS: PIOGLITAZONE 15 MG TABLET PO SCH (09:00)
[2021-09-21] MEDS: LOSARTAN 50 MG TABLET PO SCH (09:01)
[2021-09-21] MEDS: DOCUSATE SODIUM 100 MG CAPSULE PO SCH ×2 (09:01→20:16)
[2021-09-21] MEDS: ASPIRIN 81 MG TAB.CHEW PO SCH (09:01)
[2021-09-21] MEDS: PARoxetine 20 MG TABLET PO SCH (09:01)
[2021-09-21] MEDS: busPIRone 15 MG TABLET PO SCH ×2 (09:01→20:16)
[2021-09-21] MEDS ORDERED: ALBUMIN HUMAN 12.5 GM/50 ML BAG IV ONE (09:12)
[2021-09-21] MEDS ORDERED: FUROSEMIDE 40 MG/4 ML VIAL IV ONE (09:12)
[2021-09-21] MEDS ORDERED: FLUCONAZOLE 150 MG TABLET PO ONE (09:15)
--- NOTE | 2021-09-21 09:17 | XRay Report ---
INDICATION: f/u cxr from aspiration on admit TECHNIQUE: AP portable upright chest x-ray COMPARISON: Previous chest x-rays dated 09/15/2021, 05/24/2021 FINDINGS: Lungs:Right lung infiltrates are markedly improved with only mild residual abnormality. No new infiltrates. Left lung is negative. Heart, vascular:No significant cardiomegaly. Pulmonary vascularity is normal. No pulmonary edema or pulmonary congestion Mediastinum, hayde:No mediastinal widening. No hilar mass Pleura:No pleural fluid. No pleural-based mass or calcification Skeletal:Previous reverse left shoulder arthroplasty IMPRESSION: 1. Markedly improved right lung infiltrates consistent with resolving pneumonia 2. Mild residual right basilar parenchymal infiltrate 3. No new abnormality Interpreted and Authenticated by: Pito Burns 09/21/21
[2021-09-21] MEDS: cefTRIAXone 2 GM in DEXTROSE 5% IN WATER 50 ML IV SCH (11:00)
--- NOTE | 2021-09-21 13:33 | Discharge Summary ---
Discharge Provider Provider IMPORTANT FOLLOW-UP INFORMATION FOR PCP: Plan: -Augmentin and doxycycline upon discharge -dysphagia diet per ST, mildly thick liquids -f/u with Surgery/GI regarding lap band -f/u with Pulm regarding copd eval / PFT's Patient information: Note initiated : 09/21/21 at 1:30 pm Service Date, if different from initiated Date: [] Patient: Breann Bell 71 y/o F admitted on 09/15/21 for Low back pain. Chief Complaint: [] Date of admission: 09/15/21 20:29 Discharge date: 09/23/21 Primary care physician: Ammy Jeffries Consults: 09/15/21 Consult to Physician [CONS] Stat Comment: Consulting Provider: Dewey Lentz Reason For Exam: Physician to Consult COURSE Hospital Course Hospital course: Chief Complaint: [] Interval history: 71-year-old female with obesity, obstructive sleep apnea diabetic neuropathy CKD diabetic retinopathy hyperlipidemia anemia GERD hypertension hypothyroidism was brought to the ER because of shortness of breath and patient was hypoxic 70% on room air she has been having worsening chills and increasing sputum production for the last few days was evaluated in the ER found to have right lower lobe pneumonia and hypoxia needing 6 L of oxygen patient was admitted for further management 09/16 Hypoxia significantly improved Patient is able to sit up without any respiratory distress Her back pain improved Patient had trouble with the CPAP last night and her family supposed to bring home CPAP tonight 09/17 Hypoxia improving still needing 3 L nasal cannula oxygen Leukocytosis resolved 09/18 Patient continues to be hypoxic For hypoxia is not improving will obtain a CTA 09/21 Patient states that her cough is little better today. Shortness of breath similar to yesterday. Still requiring 3 and half liters of oxygen desats when up moving around. Good urine output with Lasix yesterday and will provide another dose of IV Lasix today. 09/22 Patient still on 4 L nasal cannula keep sats at 90 or higher. Despite patient feels breathing is mildly improved and Chest x-ray improved. Attempt to wean oxygen today, light IV Lasix today and follow-up response. 09/23 Good diuresis again yesterday but no improvement in her oxygen status. Still on 4 L. Patient appears comfortable. Patient will follow closely with pulmonology and instructed to follow-up with a her surgeon regarding her Lap- Band as possible contributor to aspiration. A: *Acute hypoxemic respiratory failure: 2/2 PNA, likely Aspiration PNA *PNA, likely Aspiration: *Oropharyngeal dysphagia, mild-mod: *JAMES uses CPAP: *COPD: may need home O2 *Diabetes: *Anxiety: *GERD: *HTN/HLD: on BB/ARB *Obese: BMI 45 Plan: -Augmentin and doxycycline upon discharge -dysphagia diet per ST, mildly thick liquids -f/u with Surgery/GI regarding lap band - possible contributor to aspiration -f/u with Pulm regarding copd eval / PFT's Discharge diagnosis: Pneumonia likely aspiration pneumonia acute hypoxic respiratory failure norman Secondary discharge diagnosis: Oral pharyngeal dysphagia JAMES COPD diabetes anxiety obesity GERD HTN Time Spent with Patient Time attestation: Total time spent providing and/or coordinating discharge services: Time spent: Greater than 30 minutes EXAM Constitutional Vitals: Temp Pulse Resp BP Pulse Ox 98.0 F 73 16 126/78 89 L 09/21/21 12:00 09/21/21 12:39 09/21/21 12:39 09/21/21 12:00 09/21/21 12:39 Discharge Plan Patient/Caregiver Discharge Instructions Activity: increase activity as tolerated Diet: Thickened Liquids Activity Restrictions/Additional Instructions: Follow-up with your surgeon or GI regarding the Lap-Band 1-2 weeks, question if contributing to aspiration. Follow-up with pulmonology regarding COPD evaluation, PFTs, 1-2 weeks. Resume home diet as tolerated. Take all meals up in chair, sitting at 90 degrees, to prevent aspiration. Increase activity as tolerated. Continue fall precautions. Use oxygen at all times using 3-5 liters. Patient with underlying COPD Follow-up with .Contact the office on to schedule Continue aggressive bowel regimen to prevent constipation. Take all medication as directed. Your prescription is with your discharge paperwork. Pain medication can cause constipation; take an over the counter stool softener and/or laxative while on pain medication. Some medications were electronically transmitted to pharmacy Take your prescription, insurance cards, and photo ID to poultry picker your medication. Return to ER for fever, chills, uncontrolled pain, inability to urinate or have a bowel movement, nausea and/or vomiting, swelling, redness, signs of infection, shortness of breath, chest pain, return of symptoms, or other acute symptom Gastroenterology evaluation in to 3 weeks Pulmonology in 2 to 3 weeks Primary care in 1 to 2 weeks Prescriptions: New amoxicillin-pot clavulanate 875-125 mg tablet 1 tab PO BID Qty: 14 0RF doxycycline hyclate 100 mg capsule 100 mg PO BID Qty: 14 0RF (DME) nebulizers Mis See Rx Instructions .Route Qty: 1 0RF Rx Instructions: As directed ipratropium-albuterol 0.5 mg-3 mg(2.5 mg base)/3 mL solution for nebulization 3 ml inhalation Q6H PRN (Reason: shortness of breath or wheezing) Qty: 90 2RF Continued acebutolol 400 mg capsule 400 mg capsule 400 mg PO QDAY Qty: 90 2RF zolpidem 10 mg tablet See Rx Instructions PO QHS Qty: 30 2RF Rx Instructions: 10mg, 1/2 - 1 PO QHS; levothyroxine [Synthroid] 175 mcg tablet 175 mcg PO QDAY Qty: 90 4RF omeprazole 20 mg capsule,delayed release(DR/EC) See Rx Instructions .ROUTE .COMPLEX Qty: 90 0RF Dose Instruction: TAKE ONE CAPSULE BY MOUTH EACH MORNING BEFORE BREAKFAST Rx Instructions: TAKE ONE CAPSULE BY MOUTH EACH MORNING BEFORE BREAKFAST buspirone 30 mg tablet See Rx Instructions .ROUTE .COMPLEX Qty: 135 0RF Dose Instruction: TAKE 1 TABLET BY MOUTH ONCE IN THE MORNING AND 1/2 TABLET AT BEDTIME ALONG WITH PAXIL FOR DEPRESSION Rx Instructions: TAKE 1 TABLET BY MOUTH ONCE IN THE MORNING AND 1/2 TABLET AT BEDTIME ALONG WITH PAXIL FOR DEPRESSION pioglitazone 15 mg tablet See Rx Instructions .ROUTE .COMPLEX Qty: 50 2RF Dose Instruction: TAKE 1/2 TABLET BY MOUTH DAILY Rx Instructions: TAKE 1/2 TABLET BY MOUTH DAILY atorvastatin 80 mg tablet 80 mg PO QHS Qty: 100 3RF losartan 100 mg tablet 100 mg PO QDAY Qty: 100 2RF aspirin [Adult Aspirin Regimen] 81 mg tablet,delayed release (DR/EC) 81 mg PO QDAY 0RF coenzyme [id number] E 100 mg-100 unit capsule 100-100 mg-unit capsule 1 cap PO QDAY 0RF cholecalciferol (vitamin D3) 1,000 mg PO QDAY 0RF paroxetine HCl 20 mg tablet 20 mg PO QDAY 0RF furosemide 20 mg tablet 20 mg PO QDAY PRN (Reason: Edema) 0RF Follow Up Plan Follow up with: Florentin Bailey ARNP [Nurse Practitioner] - 09/21/21 11:15 am (Check-in at 1100 am) Rohith Rueda MD [Physician] - (copd eval, PFT's) Patient Disposition: Home, Self-Care Prognosis: Fair Overall status at discharge: patient is progressing back to baseline Discharge Orders: Discharge Order (Routine); Ordered 09/23/21 Ordered By: Dylan Dinero [facility] VTE Deep Vein Thrombosis/Pulmonary Embolism Present on Admission: No
[2021-09-21] MEDS: SENNOSIDES 1 TABLET PO SCH (20:16)
[2021-09-21] MEDS: ATORVASTATIN 40 MG TABLET PO SCH (20:16)
[2021-09-21] MEDS: ZOLPIDEM 5 MG TABLET PO PRN (20:25)
[2021-09-22] MEDS: IPRATROPIUM/ALBUTEROL 3 ML AMPUL.NEB NEB SCH ×4 (01:30→19:04)
[2021-09-22] MEDS: 0.9 % SODIUM CHLORIDE 10 ML SYRINGE IV SCH ×3 (05:41→20:00)
[2021-09-22 07:23] LABS: ALT/SGPT 9 U/L (<40); AST/SGOT 16 U/L (<32); Albumin 3.5 gm/dL (3.2-5.2); Albumin/Globulin Ratio 1.3 (1.0-2.3); Alkaline Phosphatase 67 U/L (39-117); Bilirubin,Direct < 0.2 mg/dL (0-0.3); Bilirubin,Total 0.6 mg/dL (0.1-1.0); Blood Urea Nitrogen 12 mg/dL (8-23); Calcium 9.2 mg/dL (8.6-10.4); Carbon Dioxide 29 mmol/L (22-30); Chloride 102 mmol/L (96-108); Globulin 2.8 gm/dL (2.2-3.7); Glomerular Filtration Rate 50; Glucose 84 mg/dL (70-105); Lactate Dehydrogenase 207 U/L (135-225); Phosphorous 4.4 mg/dL (2.5-4.5); Triglycerides 65 mg/dL (<150); Uric Acid 4.6 mg/dL (2.5-8.0)
[2021-09-22] MEDS: PANTOPRAZOLE 40 MG TABLET PO SCH (07:55)
[2021-09-22] MEDS: LEVOTHYROXINE 100 MCG TABLET PO SCH (07:55)
[2021-09-22] MEDS: LEVOTHYROXINE 75 MCG TABLET PO SCH (07:55)
--- NOTE | 2021-09-22 08:23 | Internal Med Progress Note ---
SUBJECTIVE Subjective Patient information: Note initiated : 09/22/21 at 8:20 am Service Date, if different from initiated Date: [] Patient: Breann Bell 71 y/o F admitted on 09/15/21 for Low back pain. Chief Complaint: [] Interval history: 71-year-old female with obesity, obstructive sleep apnea diabetic neuropathy CKD diabetic retinopathy hyperlipidemia anemia GERD hypertension hypothyroidism was brought to the ER because of shortness of breath and patient was hypoxic 70% on room air she has been having worsening chills and increasing sputum production for the last few days was evaluated in the ER found to have right lower lobe pneumonia and hypoxia needing 6 L of oxygen patient was admitted for further management 09/16 Hypoxia significantly improved Patient is able to sit up without any respiratory distress Her back pain improved Patient had trouble with the CPAP last night and her family supposed to bring home CPAP tonight 09/17 Hypoxia improving still needing 3 L nasal cannula oxygen Leukocytosis resolved 09/18 Patient continues to be hypoxic For hypoxia is not improving will obtain a CTA 09/21 Patient states that her cough is little better today. Shortness of breath similar to yesterday. Still requiring 3.5-4liters of oxygen desats when up moving around. Good urine output with Lasix yesterday and will provide another dose of IV Lasix today. 09/22 Patient still on 4 L nasal cannula keep sats at 90 or higher. Despite patient feels breathing is mildly improved and Chest x-ray improved. Attempt to wean oxygen today, light IV Lasix today and follow-up response. Review of Systems: denies headache/fever/chills/nausea/vomiting/chest or abdominal pain/diarrhea. Otherwise see above. Constitutional Vitals: Vital Signs Temp Pulse Resp BP Pulse Ox 97.7 F 95 H 19 158/87 90 09/22/21 07:41 09/22/21 08:02 09/22/21 08:02 09/22/21 07:41 09/22/21 08:02 Period Temp Pulse Resp BP Sys/Chavira Pulse Ox Last 24 Hr 97.0 F-98.5 F 73-95 16-22 118-158/76-87 89-94 Intake and Output 09/21/21 09/22/21 09/22/21 21:59 05:59 13:59 Intake Total 240 150 Output Total 1050 Balance -810 150 Weight 105.551 kg Intake & Output: Intake & Output 09/21/21 09/22/21 09/22/21 21:59 05:59 13:59 Intake Total 240 150 Output Total 1050 Balance -810 150 Weight 105.551 kg Intake: Oral 240 150 Output: Void Amount 1050 Other: Meal Nourishment/Supplement Percent of Meal Consumed 100% Urine Appearance Clear Urine Color Bright Yellow Urine Odor Normal Stool Color Brown Stool Consistency Soft Loose Exam: General: Alert, Awake, No acute Distress, obese Eyes/N/T: EOMI, Head/Neck: neck supple, CV: RRR, No murmurs, normal s1/s2 Pulm: Diminished at bases b/l, no wheezing Abd: soft, nontender, +BS x4 Ext: no clubbing/cyanosis, mild b/l LE edema Neuro: Alert, no focal deficits, moves all extremities, Skin: warm/dry OBJ DATA Labs CBC & Chem 7: 09/20/21 05:46 09/22/21 05:45 Labs: Abnormal Lab Results 09/20/21 05:46 RBC 5.39 H Hct 46.3 H RDW 16.8 H Eos % (Auto) 9.3 H Lymph # (Auto) 1.01 L Meds: Medications Acetaminophen (Acetaminophen 325 Mg Tablet) 650 mg PO Q6HP PRN; Protocol PRN Reason: Per Pain Protocol/Fever > 101 Last Admin: 09/15/21 21:58 Dose: 650 mg Documented by: Albuterol Sulfate (Albuterol Sulfate 2.5 Mg/3 Ml Nebulizer) 2.5 mg NEB Q2HP PRN PRN Reason: Shortness Of Breath Last Admin: 09/18/21 08:20 Dose: 2.5 mg Documented by: Albuterol/Ipratropium (Ipratropium/Albuterol 3 Ml Ampul.Neb) 3 ml NEB Q6HRT [facility] Last Admin: 09/22/21 08:01 Dose: 3 ml Documented by: Aspirin (Aspirin 81 Mg Tab.Chew) 81 mg PO DAILY [facility] Last Admin: 09/21/21 09:01 Dose: 81 mg Documented by: Atorvastatin Calcium (Atorvastatin 40 Mg Tablet) 80 mg PO HS [facility] Last Admin: 09/21/21 20:16 Dose: 80 mg Documented by: Bisacodyl (Bisacodyl 10 Mg Supp.Rect) 10 mg MS Q2-3DAYS PRN PRN Reason: Constipation Buspirone HCl (Buspirone 15 Mg Tablet) 30 mg PO DAILY [facility] Last Admin: 09/21/21 09:01 Dose: 30 mg Documented by: Buspirone HCl (Buspirone 15 Mg Tablet) 15 mg PO HS [facility] Last Admin: 09/21/21 20:16 Dose: 15 mg Documented by: Docusate Sodium (Docusate Sodium 100 Mg Capsule) 100 mg PO BID [facility] Last Admin: 09/21/21 20:16 Dose: 100 mg Documented by: Enoxaparin Sodium (Enoxaparin 40 Mg/0.4 Ml Syringe) 40 mg SQ DAILY [facility] Last Admin: 09/21/21 08:59 Dose: 40 mg Documented by: Furosemide (Furosemide 20 Mg Tablet) 20 mg PO DAILYP PRN PRN Reason: Edema Hydralazine HCl (Hydralazine 20 Mg/Ml Vial) 10 mg IV Q4-6HP PRN PRN Reason: Hypertension Ceftriaxone Sodium 2 gm/ (Dextrose) 50 mls @ 100 mls/hr IV DAILY [facility]; Protocol Last Infusion: 09/21/21 11:40 Dose: Infused Documented by: Levothyroxine Sodium (Levothyroxine 100 Mcg Tablet) 100 mcg PO ACB [facility] Last Admin: 09/22/21 07:55 Dose: 100 mcg Documented by: Levothyroxine Sodium (Levothyroxine 75 Mcg Tablet) 75 mcg PO QAMAC [facility] Last Admin: 09/22/21 07:55 Dose: 75 mcg Documented by: Losartan Potassium (Losartan 50 Mg Tablet) 100 mg PO DAILY [facility] Last Admin: 09/21/21 09:01 Dose: 100 mg Documented by: Magnesium Hydroxide (Magnesium Hydroxide 30 Ml Oral.Susp) 30 ml PO DAILYP PRN PRN Reason: Constipation Naloxone HCl (Naloxone Hcl 0.4 Mg/Ml Vial) 0.1 mg IV Q2MIN PRN PRN Reason: Opiate Reversal Ondansetron HCl (Ondansetron 4 Mg/2 Ml Vial) 4 mg IV Q6HP PRN PRN Reason: Nausea And Vomiting Ondansetron HCl (Ondansetron 4 Mg Odt Tablet) 4 mg SL Q6HP PRN PRN Reason: Nausea And Vomiting Pantoprazole Sodium (Pantoprazole 40 Mg Tablet) 40 mg PO QAMAC [facility] Last Admin: 09/22/21 07:55 Dose: 40 mg Documented by: Paroxetine HCl (Paroxetine 20 Mg Tablet) 20 mg PO DAILY [facility] Last Admin: 09/21/21 09:01 Dose: 20 mg Documented by: Acebutolol 400 Mg (Capsule) 1 dose PO DAILY [facility] Last Admin: 09/21/21 09:02 Dose: Not Given Documented by: Pioglitazone HCl (Pioglitazone 15 Mg Tablet) 7.5 mg PO DAILY [facility] Last Admin: 09/21/21 09:00 Dose: 7.5 mg Documented by: Prochlorperazine (Prochlorperazine 10 Mg/2 Ml Vial) 5 mg IV Q4HP PRN PRN Reason: Nausea And Vomiting Quetiapine Fumarate (Quetiapine 25 Mg Tablet) 12.5 mg PO HSP PRN PRN Reason: iNSOMNIA-2nd option Senna (Sennosides 1 Tablet) 2 tab PO HS [facility] Last Admin: 09/21/21 20:16 Dose: 2 tab Documented by: Sodium Chloride (0.9 % Sodium Chloride 10 Ml Syringe) 10 ml IV Q8 [facility] Last Admin: 09/22/21 05:41 Dose: 10 ml Documented by: Zolpidem Tartrate (Zolpidem 5 Mg Tablet) 5 mg PO HSP PRN PRN Reason: Insomnia Last Admin: 09/21/21 20:25 Dose: 5 mg Documented by: A/P Narrative A/P Narrative: A: *Acute hypoxemic respiratory failure: 2/2 PNA, likely Aspiration PNA -on 3.5-4L no improvement over last 24hrs *PNA, likely Aspiration: *Oropharyngeal dysphagia, mild-mod: *JAMES uses CPAP: *COPD: will need home O2 *Diabetes: *Anxiety: *GERD: *HTN/HLD: on BB/ARB *Obese: BMI 45 Plan: -Rocephin/azithromycin will change to Augmentin and doxycycline upon discharge -dysphagia diet per ST, mildly thick liquids -IS/Acapella -pioglitizone, ssi -IV Lasix -Continue CPAP -cont ARB -f/u with Surgery/GI regarding lap band -f/u with Pulm regarding copd eval / PFT's -ppx: Lovenox / home ppi CODE STATUS-full code Time Spent With Patient Time: Total time spent is greater than 50% in coordination of care (as documented) at patient's floor/unit and/or counseling patient: Total time spent with greater than 50% in coordination of care (as documented) at patient's floor/unit and/or counseling patient:: 25 - 35 minutes QUALITY VTE Deep Vein Thrombosis/Pulmonary Embolism Present on Admission: No
[2021-09-22] MEDS ORDERED: ALBUMIN HUMAN 12.5 GM/50 ML BAG IV ONE (09:16)
[2021-09-22] MEDS ORDERED: FUROSEMIDE 40 MG/4 ML VIAL IV ONE (09:16)
[2021-09-22] MEDS: LOSARTAN 50 MG TABLET PO SCH (10:37)
[2021-09-22] MEDS: busPIRone 15 MG TABLET PO SCH ×2 (10:37→20:28)
[2021-09-22] MEDS: PIOGLITAZONE 15 MG TABLET PO SCH (10:37)
[2021-09-22] MEDS: DOCUSATE SODIUM 100 MG CAPSULE PO SCH ×2 (10:38→20:02)
[2021-09-22] MEDS: ASPIRIN 81 MG TAB.CHEW PO SCH (10:39)
[2021-09-22] MEDS: PARoxetine 20 MG TABLET PO SCH (10:39)
[2021-09-22] MEDS: ENOXAPARIN 40 MG/0.4 ML SYRINGE SQ SCH (10:40)
[2021-09-22] MEDS: cefTRIAXone 2 GM in DEXTROSE 5% IN WATER 50 ML IV SCH (10:46)
[2021-09-22] MEDS: SENNOSIDES 1 TABLET PO SCH (20:02)
[2021-09-22] MEDS: ATORVASTATIN 40 MG TABLET PO SCH (20:27)
[2021-09-22] MEDS: ZOLPIDEM 5 MG TABLET PO PRN (20:28)
[2021-09-23] MEDS: IPRATROPIUM/ALBUTEROL 3 ML AMPUL.NEB NEB SCH ×3 (01:44→13:09)
[2021-09-23] MEDS: 0.9 % SODIUM CHLORIDE 10 ML SYRINGE IV SCH (04:19)
--- NOTE | 2021-09-23 06:55 | EKG ---
[facility] Minor Care Test Date: 2021-09-15 Pat Name: Breann Bell Department: ED Room: Gender: Female Acid Blower: guevara : 1950 Requested By: Kd Blanchard Order Number: [id number] Reading MD: Jose Parsons Measurements Intervals [place] Rate: 81 P: 49 CA: 168 QRS: -68 QRSD: 109 T: 51 QT: 379 QTc: 440 Interpretive Statements Sinus rhythm LAD, consider left anterior fascicular block Abnormal R-wave progression, late transition Electronically Signed On 09-23-2021 6:55:42 PDT by Jose Parsons /store/[email or web address]/[id number]
[2021-09-23] MEDS: PANTOPRAZOLE 40 MG TABLET PO SCH (07:56)
[2021-09-23] MEDS: LEVOTHYROXINE 100 MCG TABLET PO SCH (07:56)
[2021-09-23] MEDS: LEVOTHYROXINE 75 MCG TABLET PO SCH (07:56)
[2021-09-23] MEDS: DOCUSATE SODIUM 100 MG CAPSULE PO SCH (08:41)
[2021-09-23] MEDS: ASPIRIN 81 MG TAB.CHEW PO SCH (08:41)
[2021-09-23] MEDS: PIOGLITAZONE 15 MG TABLET PO SCH (08:42)
[2021-09-23] MEDS: PARoxetine 20 MG TABLET PO SCH (08:42)
[2021-09-23] MEDS: busPIRone 15 MG TABLET PO SCH (08:43)
[2021-09-23] MEDS: LOSARTAN 50 MG TABLET PO SCH (08:49)
[2021-09-23] MEDS: ENOXAPARIN 40 MG/0.4 ML SYRINGE SQ SCH (08:50)
[2021-09-23] MEDS: cefTRIAXone 2 GM in DEXTROSE 5% IN WATER 50 ML IV SCH (08:54)
== END 2021-09-23 14:35 | disposition home or self-care (01) | DRG 177 ==
LOC: ED 15:57 → MEDSUR 20:29
PROVIDERS: ADMIT Internal Medicine; ATTEND Internal Medicine